=== PATIENT | female | born 1960 | race Caucasian/White ===

== ENCOUNTER → 2019-03-30 | Outpatient (CLI) | payer MEDICAID, SELFPAY ==
[2019-03-30 10:07] VITALS: BMI 30.2
[2019-03-30 12:19] LABS: BNP,B-Type NATRIURETIC PEPTIDE 8.9 pg/mL (0-100)
== END | disposition home or self-care (01) ==
LOC: LAB 11:19
PROVIDERS: Family Provider Student in an Organized Health Care Education/Training Program; PCP Student in an Organized Health Care Education/Training Program; Referring Provider Internal Medicine Critical Care Medicine; Visit Provider Internal Medicine Critical Care Medicine
DX: R93.89 Abnormal findings on diagnostic imaging of other specified body structures (principal)
CPT/HCPCS: 36415; 83880

== ENCOUNTER → 2019-05-03 | Outpatient (CLI) | payer MEDICAID, SELFPAY ==
[2019-03-30 10:07] VITALS: BMI 30.2
--- NOTE | 2019-05-03 16:00 | PFTCOMP ---
COMPLETE PULMONARY FUNCTION TEST INTERPRETATION Brief HPI: Patient is a 58 year old female, currently under the care of myself, who presents to [facility] for complete pulmonary function tests secondary to diagnosis of COPD. Respiratory therapist reports good effort and reproducible results. Interpretation: Forced expiration spirometry shows no large airways obstructive ventilatory defect with an FEV1 of 82% predicted. There is no significant bronchodilator response by strict ATS criteria. Spirograms are of good quality and plateau normally. The respiratory flow volume loop shows a normal pattern. Lung volumes by body plethysmography show a slightly decreased total lung capacity at 4.33 L, 82% predicted. All other lung volumes are reduced symmetrically. Diffusion capacity by carbon monoxide is at the lower limit of normal at 71% predicted. The airway resistance is normal. No previous pulmonary function tests were available for review. Impression: Mild restrictive ventilatory defect with a symmetric reduction in diffusing capacity.
== END | disposition home or self-care (01) ==
LOC: PSN 10:55
PROVIDERS: Family Provider Student in an Organized Health Care Education/Training Program; PCP Student in an Organized Health Care Education/Training Program; Referring Provider Internal Medicine Critical Care Medicine; Visit Provider Internal Medicine Critical Care Medicine
DX: R93.89 Abnormal findings on diagnostic imaging of other specified body structures (principal)
CPT/HCPCS: 94060; 94726; 94729

== ENCOUNTER → 2019-05-07 | Outpatient (CLI) | payer MEDICAID, SELFPAY ==
[2019-03-30 10:07] VITALS: BMI 30.2
[2019-05-07 11:19] VITALS: PULSE 107; PULSE 108; PULSE 110; PULSE 112; PULSE 114; PULSE 94; PULSE 98; O2SAT 92; O2SAT 93; O2SAT 95; O2SAT 96; O2SAT 98
--- NOTE | 2019-05-07 13:38 | PCM.PSN.6M ---
PSN 6 Minute Walk Test - 6 Minute Walk Test 6 Minute Walk Test: 6 Minute Walk Test PSN:6-Minute Walk Test Start: 05/07/19 11:18 Freq: Status: Active Protocol: RESP.6MINW Document 05/07/19 11:19 HG (Rec: 05/07/19 11:20 HG [id number]) 6 Minute Walk Test Date Performed 05/07/19 Time Performed 11:00 Height 5 ft 6 in Weight: 182 lb Weight in Pounds 182.[address]: Nish Aquino Assistive device used: None Pre-test Oxygen Delivery Method Room Air Pulse Ox (%) 96 Pulse Rate (60-100 beats/min) 94 Dyspnea Zee Scale (0-10) 2 Exertion Zee Scale (6-20) 11 1st minute Oxygen Delivery Method Room Air Pulse Ox (%) 92 Pulse Rate (60-100 beats/min) 107 H 2nd minute Oxygen Delivery Method Room Air Pulse Ox (%) 92 Pulse Rate (60-100 beats/min) 107 H 3rd minute Oxygen Delivery Method Room Air Pulse Ox (%) 93 Pulse Rate (60-100 beats/min) 110 H 4th minute Oxygen Delivery Method Room Air Pulse Ox (%) 92 Pulse Rate (60-100 beats/min) 108 H 5th minute Oxygen Delivery Method Room Air Pulse Ox (%) 95 Pulse Rate (60-100 beats/min) 114 H 6th minute Oxygen Delivery Method Room Air Pulse Ox (%) 93 Pulse Rate (60-100 beats/min) 112 H Post-test Oxygen Delivery Method Room Air Pulse Ox (%) 98 Pulse Rate (60-100 beats/min) 98 Dyspnea Zee Scale (0-10) 3 Exertion Zee Scale (6-20) 11 Full Laps Walked 17 Partial Lap, Number of Tiles Walked 0 Total Distance Walked (ft) 1003 - Interpretation Interpretation: The patient ambulated 1003 feet over the course of 6 minutes beginning on room air without assistive devices or breaks. Pretesting oxygen saturation was noted to be 96% on room air. With ambulation, the mane oxygen saturation was 92%. This represents a significant exertional oxygen desaturation. - Recommendations Recommendations: There is no indication for the use of supplemental oxygen at this time. However, close interval follow-up is recommended, given the degree of oxygen desaturation noted during this study.
== END | disposition home or self-care (01) ==
LOC: PSN 10:55
PROVIDERS: Family Provider Student in an Organized Health Care Education/Training Program; PCP Student in an Organized Health Care Education/Training Program; Referring Provider Internal Medicine Critical Care Medicine; Visit Provider Internal Medicine Critical Care Medicine
DX: R93.89 Abnormal findings on diagnostic imaging of other specified body structures (principal)
CPT/HCPCS: 94618

== ENCOUNTER → 2020-01-21 | Outpatient (CLI) | payer MEDICAID, SELFPAY ==
[2019-07-05 06:06] VITALS: BMI 29.7
--- NOTE | 2020-01-21 14:48 | ECHOD_ITS ---
Reason For Study: PHTN Procedure This was a 2D Doppler, Color Flow transthoracic echocardiogram. Exam performed in department. Left Ventricle Normal LV size. Left ventricular systolic function is normal. The estimated ejection fraction is 60 %. Stage 1 diastolic dysfunction. No regional wall motion abnormalities noted. Right Ventricle Normal RV size. Normal systolic function. Atria Normal left atrium. Normal right atrium. Mitral Valve Normal mitral valve. Tricuspid Valve Normal tricuspid valve. Unable to estimate RV systolic pressure due to inadequate jet, pulmonary artery pressure probably normal. Aortic Valve Trisinus/trileaflet aortic valve. Pulmonic Valve The pulmonic valve is not well visualized. Great Vessels Normal aortic root. The pulmonary artery is normal size. Normal inferior vena cava. Pericardium/Pleural No pericardial effusion. MMode/2D Measurements & Calculations LVIDd: 4.7 cm IVSd: 1.0 cm Ao root diam: 3.3 cm LVIDs: 3.4 cm LVPWd: 1.0 cm RVDd: 3.0 cm FS: 28.5 % LAV(MOD-bp): 58.9 ml LA A4 area: 18.0 cm2 LA dimension(2D): 3.5 cm LAV(MOD-bp) Indexed: 30.5 ml/m2 LAV(MOD-sp2): 52.5 ml LAV(MOD-sp4): 57.8 ml RA A4 area: 13.0 cm2 Time Measurements MV dec time: 0.17 sec Doppler Measurements & Calculations MV E max gerard: 83.1 cm/sec Lat Peak E' Gerard: 9.2 cm/sec Med Peak E' Gerard: 7.6 cm/sec MV A max gerard: 97.8 cm/sec E/E' lat: 9.1 E/E' med: 10.9 MV E/A: 0.85 Ao V2 max: 144.2 cm/sec LV V1 max: 111.5 cm/sec PA V2 max: 93.6 cm/sec Ao max P.3 mmHg LV V1 max P.0 mmHg Interpretation Summary Normal LV size. Left ventricular systolic function is normal. The estimated ejection fraction is 60 %. Stage 1 diastolic dysfunction. Unable to estimate RV systolic pressure due to inadequate jet, pulmonary artery pressure probably normal. Ordering Physician: Zulema Barbour Referring Physician: OTD Performed By: Daisy Russ, MATTIE, RVT
== END | disposition home or self-care (01) ==
LOC: CVS 14:48
PROVIDERS: Referring Provider Internal Medicine Critical Care Medicine; Visit Provider Internal Medicine Critical Care Medicine
DX: I27.20 Pulmonary hypertension, unspecified (principal); R93.89 Abnormal findings on diagnostic imaging of other specified body structures
CPT/HCPCS: 93306

== ENCOUNTER → 2020-05-12 | Outpatient (CLI) | payer MEDICAID, SELFPAY ==
[2020-01-28 07:54] VITALS: BMI 29.0
--- NOTE | 2020-05-12 15:36 | PFTCOMP_ITS ---
COMPLETE PULMONARY FUNCTION TEST INTERPRETATION Brief HPI: Patient is a 59 year old female, currently under the care of myself, who presents to [facility] for complete pulmonary function tests secondary to diagnosis of dyspnea. Respiratory therapist reports good effort and reproducible results. Interpretation: Forced expiration spirometry shows no large airways obstructive ventilatory defect with an FEV1 of 81% predicted. There is no significant bronchodilator response by strict ATS criteria. Spirograms are of good quality and plateau normally. The respiratory flow volume loop shows a normal pattern. Lung volumes by body plethysmography show a decreased total lung capacity at 4.09 L, 77% predicted. All other lung volumes are reduced symmetrically. Diffusion capacity by carbon monoxide is decreased at 63% predicted. The airway resistance is normal. No previous pulmonary function tests were available for review. Impression: Mild restrictive ventilatory defect with a symmetric reduction in diffusion capacity.
== END | disposition home or self-care (01) ==
LOC: PSN 10:36
PROVIDERS: PCP Student in an Organized Health Care Education/Training Program; Referring Provider Nurse Practitioner Acute Care; Visit Provider Nurse Practitioner Acute Care
DX: R06.02 Shortness of breath (principal)
CPT/HCPCS: 94060; 94726; 94729

== ENCOUNTER → 2020-05-13 | Outpatient (CLI) | payer MEDICAID, SELFPAY ==
[2020-01-28 07:54] VITALS: BMI 29.0
[2020-05-13 12:50] VITALS: PULSE 100; PULSE 101; PULSE 114; PULSE 115; PULSE 116; PULSE 117; O2SAT 90; O2SAT 91; O2SAT 92; O2SAT 93; O2SAT 94; O2SAT 96
--- NOTE | 2020-05-13 15:11 | PCM.PSN.6M ---
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 Assistive device used: None Pre-test Oxygen Delivery Method Room Air Pulse Ox (%) 92 Pulse Rate (60-100 beats/min) 100 Dyspnea Zee Scale (0-10) 0 Exertion Zee Scale (6-20) 6 1st minute Oxygen Delivery Method Room Air Pulse Ox (%) 96 Pulse Rate (60-100 beats/min) 114 H 2nd minute Oxygen Delivery Method Room Air Pulse Ox (%) 92 Pulse Rate (60-100 beats/min) 116 H 3rd minute Oxygen Delivery Method Room Air Pulse Ox (%) 91 Pulse Rate (60-100 beats/min) 117 H 4th minute Oxygen Delivery Method Room Air Pulse Ox (%) 93 Pulse Rate (60-100 beats/min) 117 H 5th minute Oxygen Delivery Method Room Air Pulse Ox (%) 90 Pulse Rate (60-100 beats/min) 115 H 6th minute Oxygen Delivery Method Room Air Pulse Ox (%) 91 Pulse Rate (60-100 beats/min) 115 H Dyspnea Zee Scale (0-10) 3 Exertion Zee Scale (6-20) 11 Post-test Oxygen Delivery Method Room Air Pulse Ox (%) 94 Pulse Rate (60-100 beats/min) 101 H Full Laps Walked 18 Partial Lap, Number of Tiles Walked 55 Total Distance Walked (ft) 1117 - Interpretation Interpretation: The patient was able to ambulate 1117 feet over the course of 6 minutes on room air with no assistive devices or breaks. The patient had a low baseline saturation of 92%, but did not have any significant desaturation during testing. The patient did have significant tachycardia as high as 117 bpm. These findings are consistent with a cardiovascular limitation exercise tolerance. - Recommendations Recommendations: The patient requires no supplemental oxygen at rest, but will need to be watched closely given level of baseline desaturation.
== END | disposition home or self-care (01) ==
LOC: PSN 12:31
PROVIDERS: PCP Student in an Organized Health Care Education/Training Program; Referring Provider Nurse Practitioner Acute Care; Visit Provider Nurse Practitioner Acute Care
DX: R06.02 Shortness of breath (principal)
CPT/HCPCS: 94618

== ENCOUNTER → 2020-09-26 12:59 | Outpatient (CLI) | payer MEDICAID, SELFPAY ==
[2020-09-12 09:53] VITALS: BMI 29.3
--- NOTE | 2020-09-26 13:02 | RAD_ITS ---
INDICATION: Concern for ILD EXAMINATION/TECHNIQUE: X-RAY - XR Chest 2 Views COMPARISON: None. FINDINGS: Chronic lung changes. Tortuous and calcified thoracic aorta. The heart is not enlarged. No pleural effusion or pneumothorax. Degenerative changes of thoracic spine. RAD/Chest PA and Lateral IMPRESSION: No acute radiographic abnormalities. Chronic lung changes. Electronically Signed: Jermain Jauregui MD at 21:39 EST Tel , Service support ,
== END ==
PROVIDERS: PCP Student in an Organized Health Care Education/Training Program; Referring Provider Internal Medicine Critical Care Medicine; Visit Provider Internal Medicine Critical Care Medicine
DX: R06.02 Shortness of breath (principal)
CPT/HCPCS: 71046

== ENCOUNTER → 2020-10-07 14:52 | Outpatient (CLI) | payer MEDICAID, SELFPAY ==
[2020-09-12 09:53] VITALS: BMI 29.3
--- NOTE | 2020-10-07 14:53 | CT_ITS ---
STUDY: CT CHEST WITHOUT CONTRAST REASON FOR EXAM: Female, 60 years old. Concern for ILD RADIATION DOSAGE (If Supplied By Facility): CTDIvol = ( 14.74 ) mGy, DLP = ( 482.51 ) mGycm TECHNIQUE: Transaxial imaging was performed without the administration of intravenous contrast material. Individualized dose optimization techniques were used for this CT. COMPARISON: Chest x-ray 09/26/2020 FINDINGS: The lungs are normal. There is no demonstrated pleural abnormality. Normal heart and pericardium. There are calcifications of the coronary arteries. Normal mediastinum. Normal hilar regions. Normal unenhanced pulmonary arteries. There is atherosclerotic calcification of the aortic arch with tortuosity and elongation of the aortic arch and descending thoracic aorta. Normal osseous structures. There is no demonstrated abnormality of the visualized upper abdomen. CT/Chest without Contrast IMPRESSION: Normal unenhanced CT Chest examination. Electronically Signed: King Hagan MD at 7:56 EDT Tel , Service support ,
== END ==
PROVIDERS: PCP Student in an Organized Health Care Education/Training Program; Referring Provider Internal Medicine Critical Care Medicine; Visit Provider Internal Medicine Critical Care Medicine
DX: R06.02 Shortness of breath (principal)
CPT/HCPCS: 71250

== ENCOUNTER → 2021-04-14 11:18 | Outpatient (CLI) | payer MEDICAID, SELFPAY | PROVIDERS: PCP Student in an Organized Health Care Education/Training Program; Visit Provider Internal Medicine Critical Care Medicine | DX: R06.02 Shortness of breath (principal) | CPT/HCPCS: 94762 ==

== ENCOUNTER 2021-08-26 12:54 | Outpatient (CLI) | payer MEDICAID, SELFPAY ==
--- NOTE | 2021-08-27 10:51 | PFT ---
INTRODUCTION: The patient is a 61-year-old female that presents for pulmonary function studies secondary to a diagnosis of shortness of breath. Respiratory therapy reported good patient effort. Bronchodilators were used during testing. INTERPRETATION: Forced expiration spirometry demonstrates no evidence of a large airways obstructive ventilatory defect. There was no significant response to aerosolized bronchodilators. Spirograms are of good quality and plateau normally. Body plethysmography was performed and revealed a decreased TLC to 3.85 L, 73% of predicted, indicative of a mild restrictive ventilatory impairment. The remainder of the lung volumes are symmetrically reduced. Diffusing capacity by single breath CO is reduced to 60% of predicted. IMPRESSION: Mild restrictive ventilatory impairment with symmetric reduction in diffusing capacity.
== END 2021-08-26 23:59 | disposition home or self-care (01) ==
LOC: PSN 12:56
PROVIDERS: PCP Student in an Organized Health Care Education/Training Program; Referring Provider Internal Medicine Critical Care Medicine; Visit Provider Internal Medicine Critical Care Medicine
DX: R06.02 Shortness of breath (principal); Z72.0 Tobacco use
CPT/HCPCS: 94060; 94726; 94729

== ENCOUNTER 2021-09-28 14:56 | Outpatient (CLI) | payer MEDICAID, SELFPAY ==
--- NOTE | 2021-09-28 15:02 | CT_ITS ---
STUDY: LOW DOSE CT LUNG CANCER SCREENING REASON FOR EXAM: Female, 61 years old. 1 pack per day smoker x45 years RADIATION DOSAGE (If Supplied By Facility): CTDIvol = ( 3.02 ) mGy, DLP = ( 92.52 ) mGycm TECHNIQUE: No contrast was administered. Low dose technique was utilized (average mAS-38 and kVp 120). 1.25 mm axial source images with a slice interval of 1.25-mm were reconstructed in lung windows. 2.5 mm axial source images with a slice interval of 2.5-mm were reconstructed in lung windows. 5.0 mm axial source images with a slice interval of 5.0-mm were reconstructed in soft tissue windows. Nodule measured using lung windows on PACS and/or independent workstation with automated measurement of minimum and maximum diameter. Nodule measurement reported as average diameter rounded to the nearest whole number. Growth is defined as an increase ins size of greater than 1.5 mm. COMPARISON: 10/07/2020 FINDINGS: Lung windows show the lungs to be normally expanded. Stable fibrotic scar in the right upper lobe on axial image 30., There is a subtle 2.5 mm noncalcified nodule in the lateral left lower lobe on axial image 144. No new suspicious noncalcified mass or nodule. No organized infiltrate. Soft tissue windows show a normal-appearing thyroid gland. No suspicious adenopathy. There are calcified coronary vessels. No pleural or pericardial effusions. Limited cuts through the upper abdomen show a small retrocardiac hiatal hernia. Bony structures show degenerative change CT/Low Dose CT Lung Screening IMPRESSION: Lung-RADS category 2 - Continue annual screening with LDCT in 12 months. IMPORTANT NOTES FOR USE: ACR Lung-RADS Version 1.1 Assessment Categories Release Date: 2018 Category: Coded 0-4 bases on nodule(s) with highest degree of suspicion. Negative screen is defined as categories 1 and 2; a positive screen is defined as categories 3 and 4. Category 3 and 4A nodules that are unchanged on interval CT should be coded as category 2, and individuals returned to screening in 12 months. Category 4X: Category 3 or 4 nodules with additional imaging findings that increase the suspicion of lung cancer, such as spiculation, GGN that doubles in size in 1 year, enlarged lymph notes, etc. Category Modifiers: S (significant finding unrelated to lung cancer) Electronically Signed: Vinh Gonzalez MD at 16:31 EDT ,
== END 2021-09-28 23:59 | disposition home or self-care (01) ==
LOC: CT 14:57
PROVIDERS: PCP Student in an Organized Health Care Education/Training Program; Referring Provider Nurse Practitioner Acute Care; Visit Provider Nurse Practitioner Acute Care
DX: F17.210 Nicotine dependence, cigarettes, uncomplicated (principal)
CPT/HCPCS: 71271

== ENCOUNTER 2021-10-06 20:03 | Outpatient (CLI) | payer MEDICAID, SELFPAY | END 2021-10-06 23:59 | disposition home or self-care (01) | PROVIDERS: PCP Student in an Organized Health Care Education/Training Program; Visit Provider Nurse Practitioner Acute Care | DX: G47.10 Hypersomnia, unspecified (principal) | CPT/HCPCS: 95810 ==

== ENCOUNTER → 2022-09-29 | Outpatient (CLI) | payer MEDICAID, SELFPAY ==
--- NOTE | 2022-09-29 14:54 | CT_ITS ---
STUDY: LOW DOSE CT LUNG CANCER SCREENING REASON FOR EXAM: Female, 62 years old. One pack per day smoker more than 30 years RADIATION DOSAGE (If Supplied By Facility): CTDIvol = ( 2.39 ) mGy, DLP = ( 70.57 ) mGycm TECHNIQUE: No contrast was administered. Low dose technique was utilized (average mAS-38 and kVp 120). 1.25 mm axial source images with a slice interval of 1.25-mm were reconstructed in lung windows. 2.5 mm axial source images with a slice interval of 2.5-mm were reconstructed in lung windows. 5.0 mm axial source images with a slice interval of 5.0-mm were reconstructed in soft tissue windows. COMPARISON: 09/28/2021 NODULES: Lung windows show the lungs to be normally expanded. Development of diffuse groundglass opacification throughout both lung barrios since the previous study suggesting active alveolitis or small airways inflammation. There is no organized infiltrate or effusion, no suspicious noncalcified mass or nodule. Limited soft tissue windows show normal-appearing thyroid gland. No suspicious axillary, mediastinal, or perihilar adenopathy. There are calcified coronary vessels. No pleural or pericardial effusions. Bony structures show degenerative change. Limited cuts through the upper abdomen do not show a suspicious solid organ abnormality CT/Low Dose CT Lung Screening IMPRESSION: Lung-RADS category 2 - Continue annual screening with LDCT in 12 months. IMPORTANT NOTES FOR USE: ACR Lung-RADS Version 1.1 Assessment Categories Release Date: 2018 Category: Coded 0-4 bases on nodule(s) with highest degree of suspicion. Negative screen is defined as categories 1 and 2; a positive screen is defined as categories 3 and 4. Category 3 and 4A nodules that are unchanged on interval CT should be coded as category 2, and individuals returned to screening in 12 months. Category 4X: Category 3 or 4 nodules with additional imaging findings that increase the suspicion of lung cancer, such as spiculation, GGN that doubles in size in 1 year, enlarged lymph notes, etc. Category Modifiers: S (significant finding unrelated to lung cancer) Electronically Signed: Vinh Gonzalez MD at 8:00 EDT ,
== END | disposition home or self-care (01) ==
PROVIDERS: PCP Student in an Organized Health Care Education/Training Program; Referring Provider Nurse Practitioner Acute Care; Visit Provider Nurse Practitioner Acute Care
DX: F17.210 Nicotine dependence, cigarettes, uncomplicated (principal)
CPT/HCPCS: 71271

== ENCOUNTER → 2023-07-21 | Outpatient (CLI) | payer MEDICAID, SELFPAY ==
--- NOTE | 2023-07-25 11:01 | PFT ---
INTRODUCTION: The patient is a 63-year-old female who presents for pulmonary function studies secondary to a diagnosis of hypoventilation. Respiratory therapy reported good patient effort. Bronchodilators were used during testing. INTERPRETATION: Forced expiration spirometry demonstrated no evidence of a large airways obstructive ventilatory defect. There was no significant response to aerosolized bronchodilators. Spirograms are of good quality and plateau normally. Body plethysmography was performed and revealed lung volumes to be within normal limits. Diffusing capacity by single breath CO was mildly decreased at 70% of predicted. IMPRESSION: Isolated mild reduction in diffusing capacity.
== END | disposition home or self-care (01) ==
LOC: PSN 10:29
PROVIDERS: PCP Student in an Organized Health Care Education/Training Program; Referring Provider Internal Medicine Critical Care Medicine; Visit Provider Internal Medicine Critical Care Medicine
DX: G47.34 Idiopathic sleep related nonobstructive alveolar hypoventilation (principal)
CPT/HCPCS: 94060; 94726; 94729

== ENCOUNTER → 2023-08-10 | Outpatient (CLI) | payer MEDICAID, SELFPAY ==
--- NOTE | 2023-08-10 12:48 | ECHOCS_ITS ---
Reason For Study: SOB, PHTN Procedure This was a 2D Doppler, Color Flow transthoracic echocardiogram. Exam performed in department. Left Ventricle Normal LV size. Left ventricular systolic function is normal. The estimated ejection fraction is 60 %. No regional wall motion abnormalities noted. Right Ventricle Normal RV size. Normal systolic function. Atria Normal left atrium. Normal right atrium. Mitral Valve Normal mitral valve. Tricuspid Valve Normal tricuspid valve. Mild (1+) tricuspid valve insufficiency. Pulmonary artery systolic pressure is 34 mmHg. Aortic Valve Trisinus/trileaflet aortic valve. Mild focal aortic valve thickening. Noncoronary cusp valve thickening. Pulmonic Valve Normal pulmonic valve. Great Vessels Normal aortic root. The pulmonary artery is normal size. Normal inferior vena cava. Pericardium/Pleural No pericardial effusion. MMode/2D Measurements & Calculations LVIDd: 4.4 cm IVSd: 0.94 cm Ao root diam: 2.8 cm LVIDs: 2.9 cm LVPWd: 0.92 cm RVDd: 3.4 cm FS: 35.3 % LAV(MOD-bp): 35.7 ml LVAd ap4: 23.7 cm2 LVAd ap2: 20.0 cm2 LAV(MOD-bp) Indexed: 20.3 ml/m2 LVLd ap4: 7.2 cm LVLd ap2: 7.0 cm LAV(MOD-sp2): 35.5 ml EDV(MOD-sp4): 63.7 ml EDV(MOD-sp2): 50.6 ml LAV(MOD-sp4): 32.5 ml EDV(sp4-el): 66.4 ml EDV(sp2-el): 48.6 ml LVAs ap4: 12.6 cm2 LVAs ap2: 12.3 cm2 LVLs ap4: 5.8 cm LVLs ap2: 5.8 cm ESV(MOD-sp4): 24.0 ml ESV(MOD-sp2): 22.1 ml ESV(sp4-el): 23.2 ml ESV(sp2-el): 22.1 ml EF(MOD-sp4): 62.3 % EF(MOD-sp2): 56.4 % EF(sp4-el): 65.1 % SV(MOD-sp4): 39.7 ml SV(MOD-sp2): 28.5 ml SV(sp4-el): 43.2 ml LA dimension(2D): 4.1 cm LA A4 area: 13.7 cm2 RA A4 area: 11.0 cm2 TAPSE: 2.7 cm Doppler Measurements & Calculations Lat Peak E' Gerard: 9.1 cm/sec Med Peak E' Gerard: 8.9 cm/sec MV V2 max: 89.7 cm/sec MV max P.2 mmHg MV V2 mean: 54.2 cm/sec MV mean P.3 mmHg MV V2 VTI: 26.5 cm MV P1/2t max gerard: 75.9 cm/sec Ao V2 max: 109.3 cm/sec LV V1 max: 88.1 cm/sec MV P1/2t: 88.5 msec Ao max P.8 mmHg LV V1 max P.1 mmHg MV dec slope: 251.1 cm/sec2 Ao V2 mean: 74.5 cm/sec LV V1 mean P.8 mmHg Ao mean P.5 mmHg LV V1 mean: 64.2 cm/sec MVA(P1/2t): 2.5 cm2 Ao V2 VTI: 28.1 cm LV V1 VTI: 20.9 cm AV (velocity ratio): 0.74 PA V2 max: 76.2 cm/sec TR max gerard: 273.9 cm/sec PA V2 mean: 50.4 cm/sec TR max P.0 mmHg ECHO/Echo Complete W/ Contrast Interpretation Summary Normal LV size. Left ventricular systolic function is normal. The estimated ejection fraction is 60 %. Mild focal aortic valve thickening. Pulmonary artery systolic pressure is 34 mmHg. Ordering Physician: Zulema Barbour Referring Physician: Eric Leahy Performed By: Daisy Russ RDCS, RVT
--- OUTSIDE RECORDS SUMMARY | 2023-08-10 13:08 | XMS RPT_ITS | CCD ---
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 Name Role Phone Leahy, Janes Primary Care Provider [phone] Azeb Zamudio Attending Unavailable Leahy, Janes Primary Care Unavailable Leahy, Janes Referring Unavailable Ogorzolka, Azeb Attending Unavailable Leahy, Janes Primary Care Unavailable Leahy, Janes Referring Unavailable DALLAS DUGGAN Attending Unava ilable LEAHY, JANES R Primary Care Unavailable Janes Leahy MD Primary Care Provider [phone] Janes Leahy MD Primary Care Provider Janes Leahy MD Primary Care Provider RAHEEM GAUTHIER Attending Unavailable RAHEEM GAUTHIER Referring Unavailable RAHEEM GAUTHIER Admitting Unavailable MILES LEGGETT Attending Unavailable OGORZOLKA, AZEB Referring Unavailable OGORZOLKA, AEZB Referring Unavailable LEAHY, JANES Primary Care Unavailable OGORZOLKA, AZEB Referring Unavailable LEAHY, JANES Primary Care Unavailable OGORZOLKA, AZEB Referring Unavailable OGORZOLKA, AZEB Attending Unavailable LEAHY, JANES Primary Care Unavailable OGORZOLKA, AZEB Attending Unavailable OGORZOLKA, AZEB Referring Unavailable LEAHY, JANES Primary Care Unavailable OGORZOLKA, AZEB Referring Unavailable LEAHY, JANES Primary Care Unavailable LESLYE ROY Attending Unavailable LEAHY, JANES Primary Care Unavailable OGORZOEliazarKAAZEB Attending Unavailable LEAHY, JANES Attending Unavailable RAHEEM GAUTHIER Attending Unavailable ASTER GOOD Referring Unavailable LEAHY, JANES Primary Care Unavailable OGORZOLKA, AZEB Referring Unavailable URCHEK, RAHEEM Attending Unavailable LEAHY, JANES Primary Care Unavailable OGORZOLKA, AZEB Attending Unavailable LEAHY, JANES Primary Care Unavailable URRAHEEM HILTON Attending Unavailable OGORZOLKA, AZEB Referring Unavailable LEAHY, JANES Primary Care Unavailable OGORZOLKA, AZEB Referring Unavailable LEAHY, JANES Primary Care Unavailable OGORZOLKA, AZEB Referring Unavailable LEAHY, JANES Primary Care Unavailable LEAHY, JANES Primary Care Unavailable URRAHEEM HILTON Attending Unavailable OGORZOLKA, AZEB Referring Unavailable LEAHY, JANES Primary Care Unavailable OGORZOLKA, AZEB Referring Unavailable LEAHY, JANES Primary Care Unavailable OGORZOLKA, AZEB Referring Unavailable OGORZOLKA, AZEB Attending Unavailable LEAHY, JANES Primary Care Unavailable OGORZOLKA, AZEB Referring Unavailable OGORZOLKA, AZEB Referring Unavailable LEAHY, JANES Primary Care Unavailable OGORZOLKA, AZEB Referring Unavailable OGORZOLKA, AZEB Attending Unavailable LEAHY, JANES Primary Care Unavailable OGORZOLKA, AZEB Referring Unavailable LEAHY, JANES Primary Care Unavailable LEAHY, JANES Primary Care Unavailable OGORZOLKA, AZEB Referring Unavailable OGORZOLKA, AZEB Referring Unavailable OGORZOLKA, AZEB Attending Unavailable LEAHY, JANES Primary Care Unavailable OGORZOLKA, AZEB Referring Unavailable LEAHY, JANES Primary Care Unavailable OGORZOLKA, AZEB Referring Unavailable LEAHY, JANES Primary Care Unavailable OGORZOLKA, AZEB Attending Unavailable LEAHY, JANES Primary Care Unavailable OGORZOLKA, AZEB Referring Unavailable OGORZOLKA, AZEB Referring Unavailable OGORZOLKA, AZEB Attending Unavailable ELAHY, JANES Primary Care Unavailable OGORZOLKA, AZEB Referring Unavailable LEAHY, JANES Primary Care Unavailable OGORZOLKA, AZEB Referring Unavailable LEAHY, JANES Primary Care Unavailable OGORZOLKA, AZEB Referring Unavailable LEAHY, JANES Primary Care Unavailable OGORZOLKA, AZEB Referring Unavailable OGORZOLKA, AZEB Attending Unavailable LEAHY, JANES Primary Care Unavailable OGORZOLKA, AZEB Referring Unavailable LEAHY, JANES Primary Care Unavailable OGORZOLKA, AZEB Referring Unavailable OGORZOLKA, AZEB Attending Unavailable LEAHY, JANES Primary Care Unavailable OGORZOLKA, AZEB Referring Unavailable OGORZOLKA, AZEB Attending Unavailable LEAHY, JANES Primary Care Unavailable OGORZOLKA, AZEB Referring Unavailable OGORZOLKA, AZEB Attending Unavailable OGORZOLKA, AZEB Referring Unavailable LEAHY, JANES Primary Care Unavailable LEAHY, JANES Primary Care Unavailable LEAHY, JANES Attending Unavailable OGORZOLKA, AZEB Referring Unavailable LEAHY, [facility] Primary Care Unavailable RAHEEM GAUTHIER Attending Unavailable LEAHY, [facility] Primary Care Unavailable OGORZOLKA, AZEB Referring Unavailable LEAHY, [facility] Primary Care Unavailable OGORZOLKA, AZEB Referring Unavailable OGORZOLKA, AZEB Attending Unavailable LEAHY, [facility] Primary Care Unavailable RAHEEM GAUTHIER Attending Unavailable LEAHY, [facility] Primary Care Unavailable OGORZOLKA, AZEB Attending Unavailable LEAHY, [facility] Primary Care Unavailable LEAHY, JANES Attending Unavailable OGORZOLKA, AZEB Referring Unavailable LEAHY, JANES Referring Unavailable RAHEEM GAUTHIER Attending Unavailable OGORZOLKA, AZEB Attending Unavailable Medications Current Medications Medication Drug Class(es) Dates Sig (Normalized) Sig (Original) [id number] 200 actuat albuterol 0.09 mg/actuat metered dose inhaler (20 sources) beta2-Adrenergic Agonist Start: 05-22-2022 ProAir HFA 108 (90 Base) MCG/ACT inhaler every 4 hours as needed. 0 05/22/2022 Active Completed/Discontinued Medications Medication Drug Class(es) Dates Sig (Normalized) Sig (Original) naproxen 500 mg oral tablet (5 sources) Nonsteroidal Anti-inflammatory Drug Start: 03-23-2022 End: 05-04-2022 take 1 tablet by mouth twice daily at mealtime naproxen (NAPROSYN) 500 MG tablet Indications: Calcific tendinitis of left shoulder , Adhesive capsulitis of left shoulder Take 1 tablet by mouth 2 times daily (with meals) 60 tablet 1 03/23/2022 05/04/2022 Discontinued (LIST CLEANUP) Problems Active Problems Problem Classification Problem Date Documented Date Episodic/Chronic Anxiety disorders (20 sources) Generalized anxiety disorder; Translations: [Generalized anxiety disorder] Onset: 09-11-2019 09-11-2019 Chronic Asthma (20 sources) Mild intermittent asthma; Translations: [Mild intermittent asthma, uncomplicated] Onset: 08-11-2017 Resolved: 06-11-2020 09-11-2019 Chronic Diabetes mellitus without complication (20 sources) Type 2 diabetes mellitus without complication; Translations: [Type 2 diabetes mellitus without complications] Onset: 09-11-2019 09-11-2019 Chronic Disorders of lipid metabolism (20 sources) Mixed hyperlipidemia; Translations: [Mixed hyperlipidemia] Onset: 08-11-2017 09-11-2019 Chronic Esophageal disorders (20 sources) Gastroesophageal reflux disease without esophagitis; Translations: [Gastro-esophageal reflux disease without esophagitis] Onset: 08-11-2017 09-11-2019 Chronic Essential hypertension (20 sources) Essential hypertension; Translations: [Essential (primary) hypertension] Onset: 08-11-2017 09-11-2019 Chronic Mood disorders (20 sources) Depressive disorder; Translations: [Depression] Onset: 08-11-2017 09-11-2019 Chronic Nutritional deficiencies (20 sources) Vitamin D deficiency; Translations: [Vitamin D deficiency, unspecified] Onset: 09-11-2019 09-11-2019 Chronic Osteoarthritis (20 sources) Osteoarthritis of joint of left shoulder region; Translations: [Primary osteoarthritis, left shoulder] Onset: 07-06-2022 07-06-2022 Chronic Other diseases of kidney and ureters (1 source) Disorder of kidney and ureter, unspecified; Translations: [Mild renal insufficiency] Onset: 07-15-2022 Episodic Other diseases of veins and lymphatics (1 source) Peripheral venous insufficiency; Translations: [Venous (peripheral) insufficiency] Episodic Other nervous system disorders (2 sources) Other chronic pain; Translations: [Other chronic pain] Onset: 03-23-2022 Chronic Other non-traumatic joint disorders (1 source) Chronic pain of left upper limb; Translations: [Pain in left shoulder] Episodic Other non-traumatic joint disorders (3 sources) Shoulder pain; Translations: [Pain in left shoulder] Episodic Other nutritional; endocrine; and metabolic disorders (20 sources) Obese class I; Translations: [Obesity, unspecified] Onset: 02-01-2018 09-11-2019 Chronic Other nutritional; endocrine; and metabolic disorders (1 source) Obese class I; Translations: [Obesity, Class I, BMI 30-34.9] Onset: 02-01-2018 09-11-2019 Other skin disorders (1 source) Localized swelling, mass and lump, right lower limb; Translations: [Localized swelling of right lower leg] Episodic Substance-related disorders (2 sources) Nicotine dependence, cigarettes, uncomplicated; Translations: [Nicotine dependence, cigarettes, uncomplicated] Onset: 09-15-2022 Chronic Past or Other Problems Problem Classification Problem Date Documented Date Episodic/Chronic Acute and unspecified renal failure (2 sources) Acute kidney failure, unspecified; Translations: [Acute kidney failure, unspecified (HCC)] Onset: 07-20-2022 Episodic Complications of surgical procedures or medical care (20 sources) Delayed recovery from general anesthesia; Translations: [Other complications of anesthesia, initial encounter] Onset: 07-15-2022 07-15-2022 Episodic Other connective tissue disease (4 sources) Calcific tendinitis of left shoulder; Translations: [Calcific tendinitis of left shoulder] Onset: 03-23-2022 Episodic Other connective tissue disease (20 sources) Calcific tendinitis of left shoulder; Translations: [Calcific tendinitis of left shoulder] Onset: 06-02-2022 Episodic Other connective tissue disease (20 sources) Adhesive capsulitis of left shoulder; Translations: [Adhesive capsulitis of left shoulder] Onset: 06-02-2022 Episodic Other connective tissue disease (20 sources) Biceps tendinitis; Translations: [Bicipital tendinitis, left shoulder] Onset: 07-06-2022 Episodic Other connective tissue disease (1 source) Adhesive capsulitis of left shoulder; Translations: [Adhesive capsulitis of left shoulder] Onset: 06-02-2022 Episodic Other connective tissue disease (2 sources) Bicipital tendinitis, left shoulder; Translations: [Bicipital tendinitis, left shoulder] Onset: 07-06-2022 Episodic Other connective tissue disease (2 sources) Unspecified rotator cuff tear or rupture of left shoulder, not specified as traumatic; Translations: [Unspecified rotator cuff tear or rupture of left shoulder, not specified as traumatic] Onset: 07-02-2022 Episodic Other female genital disorders (4 sources) Leukoplakia of vulva; Translations: [Circumscribed scleroderma] Onset: 10-12-2022 Episodic Other lower respiratory disease (20 sources) Dyspnea; Translations: [Shortness of breath] Onset: 12-09-2020 12-09-2020 Episodic Other non-traumatic joint disorders (4 sources) Pain in left shoulder; Translations: [Pain in left shoulder] Onset: 03-23-2022 Episodic Other screening for suspected conditions (not mental disorders or infectious disease) (20 sources) Magnetic resonance imaging of thoracic spine abnormal; Translations: [Abnormal findings on diagnostic imaging of other parts of musculoskeletal system] Onset: 09-11-2019 09-11-2019 Episodic Residual codes; unclassified (20 sources) Insomnia; Translations: [Insomnia, unspecified] Onset: 03-15-2020 03-15-2020 Episodic Residual codes; unclassified (20 sources) Tobacco user; Translations: [Tobacco use] Onset: 12-09-2020 12-09-2020 Episodic Residual codes; unclassified (2 sources) Tobacco use; Translations: [Tobacco use] Onset: 09-15-2022 Episodic Results Test Name Value Interpretation Reference Range Facil ity Vital Signs Date Time Vital Sign Value Performing Clinician Faci lit 02-28-2023 14:03-0400 Body height 167.6 cm Janes Leahy MD Work Phone: [facility] [place] 02-28-2023 14:03-0400 Body mass index (BMI) [Ratio] 25.34 kg/m2 Janes Leahy MD Work Phone: [facility] [place] 02-28-2023 14:03-0400 Body weight 71.22 kg Janes Leahy MD Work Phone: [facility] [place] 02-28-2023 14:03-0400 Diastolic blood pressure 79 mm[Hg] Janes Leahy MD Work Phone: [facility] [place] 02-28-2023 14:03-0400 Heart rate 71 /min Janes Leahy MD Work Phone: [facility] [place] 02-28-2023 14:03-0400 SaO2% (BldA) [Mass fraction] 91 % Janes Leahy MD Work Phone: [facility] [place] 02-28-2023 14:03-0400 Systolic blood pressure 134 mm[Hg] Janes Leahy MD Work Phone: [facility] [place] 01-25-2023 12:54-0400 Body height 167.6 cm Raheem Gauthier MD Work Phone: [facility] [place] 01-25-2023 12:54-0400 Body mass index (BMI) [Ratio] 23.4 kg/m2 Raheem Gauthier MD Work Phone: [facility] [place] 01-25-2023 12:54-0400 Body weight 65.77 kg Raheem Gauthier MD Work Phone: [facility] [place] 11-16-2022 10:54-0400 Body height 167.6 cm Raheem Gauthier MD Work Phone: [facility] [place] 11-16-2022 10:54-0400 Body mass index (BMI) [Ratio] 23.4 kg/m2 Raheem Gauthier MD Work Phone: [facility] [place] 11-16-2022 10:54-0400 Body weight 65.77 kg Raheem Gauthier MD Work Phone: [facility] [place] 11-16-2022 10:54-0400 Diastolic blood pressure 68 mm[Hg] Raheem Gauthier MD Work Phone: [facility] [place] 11-16-2022 10:54-0400 Systolic blood pressure 114 mm[Hg] Raheem Gauthier MD Work Phone: [facility] [place] 11-15-2022 14:50-0400 Body height 167.6 cm [facility] 1 [facility] [place] 11-15-2022 14:50-0400 Body mass index (BMI) [Ratio] 23.4 kg/m2 [facility] 1 [facility] [place] 11-15-2022 14:50-0400 Body weight 65.[address] [place] 10-12-2022 11:17-0400 Body mass index (BMI) [Ratio] 26.63 kg/m2 Leslye Roy MD Work Phone: [facility] [place] 10-12-2022 11:17-0400 Body temperature 97.81 [degF] Leslye Roy MD Work Phone: [facility] 10-12-2022 11:17-0400 Body weight 72.58 kg Leslye Roy MD Work Phone: [facility] 10-12-2022 11:17-0400 Diastolic blood pressure 76 mm[Hg] Leslye Roy MD Work Phone: [facility] 10-12-2022 11:17-0400 Systolic blood pressure 130 mm[Hg] Leslye Roy MD Work Phone: [facility] Encounters Encounter Date Encounter Type Care Provider Facility Start: 07-19-2023 Refill Janes Leahy MD Work Phone: [facility] Start: 05-18-2023 Refill Janes Leahy MD Work Phone: [facility] Procedures Date Procedure Procedure Detail Performing Clinician Start: 02-25-2023 Lipid 1996 panel - S herminio or Plasma Janes Leahy MD Work Phone: Start: 11-15-2022 Radex shoulder compl ete minimum 2 views Aster HOSKINSC Work Phone: Start: 11-15-2022 Mammography Beth cottrell P[facility] Work Phone: Start: 10-12-2022 Microscopic observat ion [Identifier] in Cervix by Cyto stain Dameon Rodriguez PT Start: 11-19-2021 Lipid 1996 panel - S herminio or Plasma Fabrice Villareal PT Start: 02-12-2020 Dup-scan xtr veins unilateral/limited study Risa Ottrafiq Work Phone: Plan of Treatment Date Care Activity Detail Author Start: 01-23-2029 DTaP/Tdap/Td vaccine (2 - Td or Tdap) DTaP/Tdap/Td vaccine (2 - Td or Tdap) [facility] Start: 01-23-2029 DTaP/Tdap/Td vaccine (2 - Td) DTaP/Tdap/Td vaccine (2 - Td) [place] Start: 01-23-2029 DTaP/Tdap/Td Vaccines (2 - Td or Tdap) DTaP/Tdap/Td Vaccines (2 - Td or Tdap) [facility] Start: 10-13-2027 Screening for malignant neoplasm of cervix [facility] Start: 10-12-2025 Screening for malignant neoplasm of cervix Pap Smear [facility] Start: 07-15-2025 Glaucoma screening Diabetes: Retinopathy Screening [facility] Start: 10-07-2024 Screening for malignant neoplasm of colon [facility] Start: 10-01-2024 Screening for malignant neoplasm of colon [facility] Start: 02-29-2024 Diabetic foot examination Diabetes: Foot Exam [facility] Start: 02-29-2024 End: 02-29-2024 Patient encounter procedure [facility] Start: 02-26-2024 Lipid panel Lipid Panel [facility] Start: 11-16-2023 Screening for malignant neoplasm of breast Mammogram [facility] Start: 10-25-2023 End: 10-25-2023 Patient encounter procedure [facility] Start: 10-01-2023 Screening for malignant neoplasm of lung Lung Cancer Screening [facility] Start: 09-19-2023 End: 09-19-2023 Patient encounter procedure [facility] Start: 09-16-2023 Hemoglobin A1c measurement Diabetes: Hemoglobin A1C [facility] Start: 09-16-2023 Urine screening for protein Diabetes: Urine Protein Screening [facility] Start: 07-17-2023 Glaucoma screening Diabetes: Retinopathy Screening [facility] Start: 03-18-2023 Depresssion Monitoring Depresssion Monitoring [facility] Start: 03-18-2023 Influenza vaccination [facility] Start: 03-09-2023 Hemoglobin A1c measurement A1C test (Diabetic or Prediabetic) [facility] Start: 02-28-2023 End: 02-28-2023 Patient encounter procedure [facility] Start: 01-25-2023 End: 01-25-2023 Patient encounter procedure [facility] Start: 01-21-2023 End: 01-22-2024 XR Shoulder - left 2 Views XR shoulder 2+ views left Imaging Routine Calcific tendinitis of left shoulder Adhesive capsulitis of left shoulder Expected: 01/21/2023, Expires: 01/22/2024 [facility] Work Phone: Immunizations Immunization Date Immunization Notes Care Provider Min bennett 09-11-2019 pneumococcal conjuga te vaccine, 13 valent Azeb Zamudio PA-C Work Phone: [facility] Work Phone: 01-23-2019 tetanus toxoid, redu jayla diphtheria toxoid, and acellular pertussis vaccine, adsorbed [place], [place] Payers Date Payer Category Payer Unknown [id number] 2022 Medicaid [facility] [facility] MED[facility] OD [id number] 2022-Present [phone] [address] [place] [address] Medicaid HMO [id number] 2022 Medicaid [id number] 2014 Unknown [employer] [facility] MEDICAID [id number] 2014-Present [phone] CLAIMS DEPARTMENT [address] [place] [address] [id number] 2014 Unknown [id number] 1959 Unknown [id number] 1959 Unknown [id number] Unknown Social History Date Type Detail Facility Start: 02-05-2020 End: 09-15-2022 Tobacco smoking status NHIS Current every day smoker [facility] Start: 02-05-2020 End: 09-15-2022 Cigarettes smoked current (pack per day) - Reported [facility] Start: 02-05-2020 End: 09-15-2022 Tobacco use and exposure Never used [facility] [place] ANALI Smyth Start: 02-05-2020 End: 02-28-2023 Alcohol intake [facility] Start: 09-11-2019 End: 10-06-2021 History SDOH Social Connections Phone 4 [facility] Start: 09-11-2019 End: 09-15-2022 History SDOH Social Connections Get Together 1 Charmaine [facility] ANALI SHAW Start: 09-11-2019 End: 09-15-2022 History SDOH Social Connections Membership 2 Charmaine [facility] ANALI SHAW Start: 09-11-2019 End: 09-15-2022 History SDOH Social Connections Living 3 Charmaine [facility] ANALI SHAW Start: 09-11-2019 End: 09-15-2022 History SDOH Physical Activity [place] 0 [place] [facility] ANALI SHAW Start: 09-11-2019 End: 09-15-2022 History SDOH Stress 5 [place] [facility]: 1960 [facility]igned At [facility] Start: 09-18-2022 End: 01-25-2023 Exposure to SARS-CoV-2 (event) Not sure [facility] History of tobacco use Cigarette Smoker S [facility] Work Phone: Start: 10-06-2021 History SDOH Physica l Activity MPS 6 [facility] Work Phone: Start: 07-15-2022 End: 09-15-2022 Social connection and isolation panel [facility] Do you belong to any clubs or organizations such as latter day groups, unions, fraternal or athletic groups, or school groups? No [facility] Are you now , , , , never or living with a partner? [facility] How often to you hav e a drink containing alcohol? Monthly or less [facility] How many standard dr inks containing alcohol do you have on a typical day? Patient does not drink [facility] How often do you hav e 6 or more drinks on 1 occasion? Never [facility] Do you feel stress - tense, restless, nervous, or anxious, or unable to sleep at night because your mind is troubled all the time - these days [OSQ] Not at all [facility] [place] (I/We) worried wheth er (my/our) food would run out before (I/we) got money to buy more. Never true [facility] Medical Equipment Procedure Code Equipment Code Equipment Origin al Text Equipment Identifier Dates Aaliyah Bob 5.5x19.1mm - [id number] Start: 07-22-2022 1 strip by Other route in the morning. [id number] Start: 02-17-2017 Goals Date Patient Goal Desired Activity /State Clinical Notes 07-15-2022 to 05-18-2023 Telephone Encounter - Janes Leahy MD - 05/18/2023 5:34 PM EDTTelephone Encounter - Janes Leahy MD - 05/18/2023 5:34 PM EDTTelephone Encounter - Koki Moralez MA - 03/22/2023 9:05 AM EDT Note Date & Type Note Facility 05-18-2023 Telephone encounter Note Refilled requested medication(s). [facility] 05-18-2023 Miscellaneous Notes Refilled requested medication(s). documented in this encounter [facility] 03-22-2023 Telephone encounter Note Last seen 10/12/22 [facility] 03-22-2023 Miscellaneous Notes Last seen 10/12/22 documented in this encounter [facility] 03-22-2023 Telephone encounter Note Last appointment 02/28/2023 , Next appointment is Visit date 09/19/23 Last filled Omeprazole 11/23/22 1 month 3 refills Metoprolol 11/23/22 90 days 3 refills DD [facility] 03-22-2023 Miscellaneous Notes Last appointment 02/28/2023 , Next appointment is Visit date 09/19/23 Last filled Omeprazole 11/23/22 1 month 3 refills Metoprolol 11/23/22 90 days 3 refills DD documented in this encounter [facility] 02-28-2023 History of Present illness Narrative Images from the original note were not included. [facility] [address] [facility] [id number] Visit Type: Follow Up Appointment PCP: Janes Leahy MD Reason for Visit: Diabetes Assessment and Plan Tesha was seen today for diabetes. Diagnoses and all orders for this visit: Type 2 diabetes mellitus without complication, without long-term current use of insulin ([facility] ([facility]) - Diabetes Foot Exam Essential hypertension Mixed hyperlipidemia Lab Results Component Value Date HGBA1C 5.8 09/15/2022 Her a1c is under great control currently on Janumet. No change to the medication. She is also on atorvastatin for cholesterol and ASCVD risk. She is also on metoprolol tartrate for BP management. The labs done on 02/25/23 were reviewed. Follow up for Next scheduled follow-up. Subjective Diabetes She presents for her follow-up diabetic visit. She has type 2 diabetes mellitus. Her disease course has been stable. There are no hypoglycemic associated symptoms. Pertinent negatives for hypoglycemia include no dizziness. There are no diabetic associated symptoms. Pertinent negatives for diabetes include no chest pain, no fatigue, no polydipsia, no polyphagia and no polyuria. There are no hypoglycemic complications. Symptoms are stable. There are no diabetic complications. Risk factors for coronary artery disease include diabetes mellitus, dyslipidemia, hypertension and tobacco exposure. Current diabetic treatment includes oral agent (dual therapy). She is following a generally healthy diet. There is no change in her home blood glucose trend. Review of Systems Constitutional: Negative for activity change, appetite change and fatigue. Eyes: Negative for visual disturbance. Respiratory: Negative for cough and shortness of breath. Cardiovascular: Negative for chest pain and leg swelling. Gastrointestinal: Negative for abdominal pain, constipation, diarrhea, nausea and vomiting. Endocrine: Negative for polydipsia, polyphagia and polyuria. Genitourinary: Negative for frequency. Skin: Negative for color change and wound. Neurological: Negative for dizziness. All other systems reviewed and are negative. No Known Allergies Outpatient Medications Prior to Visit Medication Sig Dispense Refill aspirin 81 MG EC tablet Take 81 mg by mouth in the morning. atorvastatin (Lipitor) 40 MG tablet Take 1 tablet (40 mg) by mouth in the morning. 90 tablet 3 clobetasol (Temovate) 0.05 % cream Apply topically 1 (one) time per week. 30 g 5 cyanocobalamin (Vitamin B-12) 1000 MCG tablet Take 1 tablet by mouth in the morning. D-5000 125 MCG (5000 UT) tablet TAKE 1 TABLET BY MOUTH DAILY 30 tablet 11 glucose blood (FREESTYLE LITE) test strip 1 strip by Other route in the morning. Janumet XR 50-1000 MG per 24 hr tablet TAKE 2 TABLETS BY MOUTH DAILY 180 tablet 3 metoprolol tartrate (Lopressor) 50 MG tablet Take 1 (ONE) and ONE-HALF OF a TABLET BY MOUTH TWICE DAILY 90 tablet 3 omeprazole (PriLOSEC) [address] capsule TAKE 1 CAPSULE BY MOUTH ONCE DAILY before a meal 30 capsule 3 ProAir HFA 108 (90 Base) MCG/ACT inhaler every 4 hours as needed. No facility-administered medications prior to visit. Past Medical History: Diagnosis Date Controlled type 2 diabetes mellitus without complication, without long-term current use of insulin ([facility]) ([facility]) 09/11/2019 Delayed emergence from general anesthesia Essential hypertension 09/11/2019 KIRSTEN (generalized anxiety disorder) 09/11/2019 Gastroesophageal reflux disease without esophagitis 09/11/2019 Mild intermittent asthma without complication 09/11/2019 Mixed hyperlipidemia 09/11/2019 Vitamin D deficiency 09/11/2019 Social History Socioeconomic History Marital status: Tobacco Use Smoking status: Every Day Packs/day: 1.00 Years: 47.00 Pack years: 47.00 Types: Cigarettes Smokeless tobacco: Never Vaping Use Vaping Use: Never used Substance and Sexual Activity Alcohol use: Not Currently Drug use: Never Sexual activity: Not Currently Social Determinants of Health Financial Resource Strain: Low Risk (09/15/2022) Overall Financial Resource Strain (CARDIA) Difficulty of Paying Living Expenses: Not hard at all Food Insecurity: No Food Insecurity (09/15/2022) Hunger Vital Sign Worried About Running Out of Food in the Last Year: Never true Ran Out of Food in the Last Year: Never true Transportation Needs: No Transportation Needs (07/15/2022) PRAPARE - Transportation Lack of Transportation (Medical): No Lack of Transportation (Non-Medical): No Physical Activity: Inactive (09/15/2022) Exercise Vital Sign Days of Exercise per Week: 0 days Minutes of Exercise per Session: 0 min Stress: No Stress Concern Present (09/15/2022) [employer] [place] [employer] - Occupational Stress Questionnaire Feeling of Stress : Not at all Social Connections: Moderately Isolated (09/15/2022) Social Connection and Isolation Panel [NHANES] Frequency of Communication with Friends and Family: More than three times a week Frequency of Social Gatherings with Friends and Family: Once a week Attends Rastafari Services: Never Active Member of Clubs or Organizations: No Attends Club or Organization Meetings: Never Marital Status: Housing Stability: Unknown (09/15/2022) Housing Stability Vital Sign Unable to Pay for Housing in the Last Year: No Unstable Housing in the Last Year: No Past Surgical History: Procedure Laterality Date SHOULDER SURGERY Left 07/22/2022 TUBAL LIGATION Past Surgical History: Procedure Laterality Date SHOULDER SURGERY Left 07/22/2022 TUBAL LIGATION Family History Problem Relation Name Age of Onset No Known Problems Sister No Known Problems Sister No Known Problems Sister No Known Problems Sister Breast cancer Maternal Grandmother Other ([id number]) Father Acute leukemia Stroke Mother No Known Problems Brother No Known Problems Sister Objective BP 134/79 Pulse 71 Ht 5' 6 (1.676 m) Wt 157 lb (71.2 kg) SpO2 91% BMI 25.34 kg/m Physical Exam Vitals and nursing note reviewed. Constitutional: Appearance: Normal appearance. HENT: Head: Normocephalic and atraumatic. Cardiovascular: Rate and Rhythm: Normal rate and regular rhythm. Pulses: Normal pulses. Heart sounds: Normal heart sounds. No murmur heard. Pulmonary: Effort: Pulmonary effort is normal. Breath sounds: Normal breath sounds. No wheezing or rhonchi. Abdominal: General: Abdomen is flat. Bowel sounds are normal. Palpations: Abdomen is soft. Tenderness: There is no abdominal tenderness. Skin: General: Skin is warm and dry. Neurological: General: No focal deficit present. Mental Status: She is alert. Mental status is at baseline. Diabetic Foot Exam normal DP and PT pulses, no trophic changes or ulcerative lesions, normal sensory exam, and normal monofilament exam Data Reviewed Labs: Recent Results (from the past 168 hour(s)) CBC Collection Time: 02/25/23 9:42 AM Result Value Ref Range White Blood Cell Count 4.6 3.8 - 10.8 Thousand/uL RBC 4.98 3.80 - 5.10 Million/uL HEMOGLOBIN 15.0 11.7 - 15.5 g/dL HEMATOCRIT 44.8 35.0 - 45.0 % MCV 90.0 80.0 - 100.0 fL MCH 30.1 27.0 - 33.0 pg MCHC 33.5 32.0 - 36.0 g/dL RDW 13.7 11.0 - 15.0 % Platelet Count 209 140 - 400 Thousand/uL Mean Platelet Volume (MPV) 10.3 7.5 - 12.5 fL Lipid panel Collection Time: 02/25/23 9:42 AM Result Value Ref Range CHOLESTEROL, TOTAL 147 <200 mg/dL HDL CHOLESTEROL 47 (L) > OR = 50 mg/dL TRIGLYCERIDES 85 <150 mg/dL LDL-CHOLESTEROL 82 mg/dL (calc) CHOL/HDLC RATIO 3.1 <5.0 (calc) NON HDL CHOLESTEROL 100 <130 mg/dL (calc) TSH Collection Time: 02/25/23 9:42 AM Result Value Ref Range TSH 2.46 0.40 - 4.50 mIU/L Vitamin D 25 hydroxy Collection Time: 02/25/23 9:42 AM Result Value Ref Range VITAMIN D,25-OH,TOTAL,IA -QUEST 76 30 - 100 ng/mL Comprehensive Metabolic Panel W/Anion Gap Collection Time: 02/25/23 9:42 AM Result Value Ref Range GLUCOSE 106 (H) 65 - 99 mg/dL Urea Nitrogen (BUN) 11 7 - 25 mg/dL Creatinine 0.75 0.50 - 1.05 mg/dL EGFR 89 > OR = 60 mL/min/1.73m2 SODIUM 141 135 - 146 mmol/L POTASSIUM 4.5 3.5 - 5.3 mmol/L CHLORIDE 107 98 - 110 mmol/L Carbon Dioxide (CO2) 25 20 - 32 mmol/L ELECTROLYTE BALANCE 9 7 - 17 mmol/L (calc) CALCIUM 9.4 8.6 - 10.4 mg/dL PROTEIN, TOTAL - QUEST 6.0 (L) 6.1 - 8.1 g/dL ALBUMIN - QUEST 3.9 3.6 - 5.1 g/dL BILIRUBIN, TOTAL - QUEST 0.6 0.2 - 1.2 mg/dL ALKALINE PHOSPHATASE 41 37 - 153 U/L AST - QUEST 15 10 - 35 U/L ALT - QUEST 11 6 - 29 U/L Imaging/Testing: Chart Clean Up: There are no discontinued medications. Janes Leahy MD 03/02/2023 11:34 PM documented in this encounter [facility] 01-25-2023 History of Present illness Narrative [facility] [address] [facility] [address] Dept: [phone] Dept 01/25/2023 Chief Complaint Patient presents with Follow-up Left Shoulder CHEMA, scope, excision calcific tendonitis, Rotator cuff repair x 1 anchor, SAD on 07/22/22 SUBJECTIVE Tesha is approximately 6 months s/p Left Shoulder CHEMA, scope, excision calcific tendonitis, Rotator cuff repair x 1 anchor, SAD. Pain is minimal. She is taking Aleve as needed for pain relief. She denies drainage from her incision. She denies significant complaints other than the expected amount of pain. The patient denies fevers, chills, or night sweats. Physical therapy was stopped on 12/14/22 due to insurance would not approve anymore. She reports overall she can do much more than before surgery. She reports she has better range of motion and can do all of her work and life related activities. She reports that the bump she was feeling on the outside of the arm seems to have softened up and is now more mobile. She reports her biggest complaint is her arm starts to shake with any sort of light lifting. Sane score: 70 OBJECTIVE Ht 5' 6 (1.676 m) Wt 145 lb (65.8 kg) BMI 23.40 kg/m Ortho Exam Focused Exam of the Left Upper Extremity Skin: appropriately healed incision without evidence of infection Edema: no evidence of edema Palpation: non tender to palpation throughout. Palpable superficial loose body lateral shoulder which is somewhat mobile. Mildly tender. ROM: full functional ROM of the elbow, wrist, and hand ROM: LEFT Forward Elevation AROM 120 PROM 140 External rotation at 0 degrees of Adduction AROM 45 PROM 45 Stability: no evidence of joint instabilities Motor: Intact in the hand - able to fire AIN, PIN, and Ulnar nerves Shoulder Motor: LEFT Supraspinatus Mild weakness Infraspinatus Full strength Subscapularis Full strength Sensation: normal in the median, ulnar, and radial nerve distributions Perfusion: Brisk capillary refill in all 5 digits IMAGING LEFT Shoulder 2V (Grashey and Axillary) taken in the office today and reviewed reveals no acute fracture or dislocation. Joint spaces relatively well-maintained. Less obvious anchors seen at previous site within the greater tuberosity. ASSESSMENT Diagnosis Plan 1. Calcific tendinitis of left shoulder 2. Adhesive capsulitis of left shoulder 3. Biceps tendinitis of left shoulder Calcific tendinitis of left shoulder [M75.32] PLAN Tesha is approximately 6-month status post left shoulder manipulation under anesthesia, calcific tendinitis removal, and rotator cuff repair. She continues to have some limited range of motion and strength but overall reports she is much improved compared to before surgery. We are also monitoring a loose rotator cuff anchor seen on her x-rays. This is somewhat less apparent on exam today and less painful. She reports she can perform all of her ADLs and work-related activities. She can sleep on the shoulder without much issue. Her biggest complaint is some shaking while lifting. I explained she can continue to see improvements that she works with a home exercise program as insurance denied further visits. As she is fairly happy with her progress, we deferred further work-up and surgical treatment at this time. She does understand she should monitor her symptoms given her likely loose anchor and continued stiffness, and if her symptoms become more life altering, I would be happy to see her back to discuss further work-up and treatment. All of her questions were answered otherwise. Immobilization: NO immobilization required at this point - FULL ROM encouraged without restrictions Weight Bearing: Weight Bearing As Tolerated Rehabilitation: NO formal rehabilitation required at this point. Follow-up: Tesha will followup with me on an as needed basis. She knows to call the office with any questions or concerns in the interim. Future Imaging: NONE Raheem Gauthier MD Orthopaedic Sports Medicine [facility] Department of Orthopaedics and Sports Medicine 01/25/2023 at 12:59 PM (Please note that portions of this note may have been completed with a voice recognition program. Efforts were made to edit the dictations but occasionally words are mis-transcribed.) documented in this encounter [facility] 12-14-2022 History of Present illness Narrative Images from the original note were not included. [facility] [address] [facility] [address] Dept: [phone] Dept PHYSICAL THERAPY TREATMENT Patient Name: Tesha Brown : 1960 Date of Service: 12/14/2022 Referring Provider: Azeb Zamudio PA* Diagnosis: Calcific tendinitis of left shoulder Subjective Pt reports no pain today, only soreness at the shoulder. The pt reports she still feels limited with movement at the shoulder but she reports she is working to move it as much as possible now. 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 Compliance with HEP: Yes Objective Objective measurements not taken today. Treatment Therapeutic Exercise Therapeutic Exercise Activity 2: wall slides, 10x 5 ea Activity 2 Comment: lift off Therapeutic Exercise Acitivity 3: shoulder abduction, 2x10 Activity 3 Comment: 2# Therapeutic Exercise Activity 4: shoulder scaption, 2x10 Activity 4 Comment: 1# Therapeutic Exercise Activity 7: shoulder flexion, 2x10 Activity 7 Comment: 2# Therapeutic Exercise Activity 8: side lying ER, 2x10 Activity 8 Comment: 2# Therapeutic Exercise Activity 15: UBE, 3.5'/2', lvl 3 Therapeutic Exercise Activity 18: midrows, 2x10 Activity 18 Comment: red Therapeutic Exercise Activity 19: shoulder extension, 2x10 Activity 19 Comment: red Therapeutic Exercise Activity 20: IR/ER with band, 2x10 Activity 20 Comment: red Assessment Skilled physical therapy interventions utilized to improve patient s impairments and work towards established goals. Patient response to treatment: Pt tolerated treatment well during session. Progressions were added for strengthening to complete with HEP following therapy. Band exercises for shoulder and periscapular strengthening were added to address weakness. The pt was cued during IR/ER to complete slow controlled movement to address weakness at the shoulder. The pt completed horizontal abduction and bilateral ER from supine position to improve ROM. Discussed continuing strengthening on her own over the next 6 weeks before following up with her surgeon. The pt will vary exercise routine as she has several exercises available and will add resistance as tolerated. 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 The rationale for today s treatment was explained to the patient. Verbal cues were provided for correct form with all exercises. Advised patient to continue with Home Exercise Program (HEP). Goals General/Ortho Patient will report decreased pain at the left shoulder to 0/10 with AROM for improved tolerance to movement. (Progressing) Start: 08/31/22 Expected End: 12/24/22 Patient will increase ROMof the left shoulder to range equal to the right for improved overhead motion. (Progressing) Start: 08/31/22 Expected End: 12/24/22 Patient will increase strength at the left UE to 4+/5 grossly for improved ability to complete AROM and light lifting. (Progressing) Start: 08/31/22 Expected End: 12/24/22 Plan Plan for next session: The pt will be placed on hold from therapy at this time as she is out of approved visits for physical therapy. The pt will continue on her own at this time following HEP. If no contact is made, after 30 days the pt will be discharged from therapy. Time Entry Total Treatment Time Start Time: 1151 Stop Time: 1230 Time Calculation (min): 39 min PT Therapeutic Procedures Time Entry Therapeutic Exercise Time Entry: 39 Dameon Rodriguez PT documented in this encounter [facility] 11-23-2022 History of Present illness Narrative Images from the original note were not included. [facility] [address] [facility] [address] Dept: [phone] Dept PHYSICAL THERAPY RE-EVALUATION Patient Name: Tesha Brown : 1960 Date of Service: 11/23/2022 Referring Provider: Azeb Zamudio PA* Diagnosis: Calcific tendinitis of left shoulder Subjective General Comments: Pt reports she is more sore today after doing more this week at work. She reports she has been gradually doing more at work. She reports lifting heavy boxes which did not cause pain initially but she was sore afterward. She reports ROM seems to be getting gradually better. Pain: Current: 3/10 Best: 0/10 Worst: Sharp at times for short duration Objective Edema: minimal swelling now at times but much improved. Palpation: minimal TTP noted at the shoulder area. Shoulder ROM: Date: 08/26/2022 09/22/2022 10/21/2022 11/23/2022 Shoulder ROM Left Left Left Left PROM AROM AROM AROM Shoulder Flexion 140 130 (supine) 110 118 Shoulder Abduction 115 95 (side lying) 102 115 Shoulder ER 45 52 (supine) 36 58 Functional ER (behind head) N/T N/T To back of head (cramping) To T1 Functional IR (behind back) 60 (IR) To beltline To L2 (assisted) To T12 *C/O pain with movement Shoulder Strength: Date: 07/29/2022 08/26/2022 09/23/2022 10/21/2022 11/23/2022 Left Right Left Left Left Left Shoulder Flexion N/T 4+/5 N/T 3-/5 4-/5 4/5 Shoulder Abd N/T 4+/5 N/T 3-/5 4-/5 4/5 Shoulder ER N/T 5/5 N/T 3+/5 4-/5 4/5 Shoulder IR N/T 5/5 N/T 3+/5 4/5 4/5 Elbow Flexion N/T 5/5 N/T 4/5 4+/5 5/5 Elbow Extension N/T 5/5 N/T 4/5 4+/5 5/5 *C/O pain with movement Scapular Strength: Date: 07/29/2022 08/26/2022 09/23/2022 10/21/2022 11/23/2022 Left Right Left Right Left Right Left Right Left Right Rhomboid 4-/5 4-/5 4-/5 4-/5 4-/5 4-/5 4/5 4/5 4+/5 4+/5 *C/O pain with movement Outcome Measure: 07/29/2022: QuickDash: 89% 08/26/2022: QuickDash: 57% 09/23/2022: QuickDash: 45% 10/21/2022: QuickDash: 14% 11/23/2022: QuickDash: 20% Assessment Reassessment of goals and objective measures was completed today after ~4 months of physical therapy intervention following shoulder sx for RTC repair and manipulation. The pt demonstrates good improvement from previous assessment last month noting increase in ROM in all planes of motion. The pt had better shoulder strength compared to previous assessment and resistive testing was completed without pain. The pt can functionally reach behind her head and reach behind the back with minimal assistance. HEP was updated during today's session to include wall slides with lift off to help address end range motion and periscapular strengthening. Added standing shoulder AROM with focus on scapulohumeral rhythm. Discussed with the pt progressively doing more activity at home and work to help build strength without pushing through pain. The pt has one more visit remaining. The pt will work on HEP over the week three weeks and follow up for progressions/assessment at that time. Rehab Potential: Good Goals Active General/Ortho Patient will be independent with HEP. (Completed) Start: 08/31/22 Expected End: 10/24/22 Met: 10/21/22 Patient will report decreased pain at the left shoulder to 0/10 with AROM for improved tolerance to movement. (Progressing) Start: 08/31/22 Expected End: 12/24/22 Goal note from Evaluation 10/21/2022 by Dameon Rodriguez PT 0-4/10 pain range, most of the time the pain is now below 2/10 Patient will increase ROMof the left shoulder to range equal to the right for improved overhead motion. (Progressing) Start: 08/31/22 Expected End: 12/24/22 Goal note from Evaluation 10/21/2022 by Dameon Rodriguez PT AROM was assessed standing today with both flexion and abduction about 90 degrees at this time. Patient will increase strength at the left UE to 4+/5 grossly for improved ability to complete AROM and light lifting. (Progressing) Start: 08/31/22 Expected End: 12/24/22 Goal note from Evaluation 10/21/2022 by Dameon Rodriguez PT 4-/5 overall at the left shoulder. Plan Plan for next session: Reassessment of goals and objective measures at next treatment session. Risks and benefits were discussed with the patient and/or family, and the patient and/or family participated with the plan of care and agrees. Treatment Therapeutic Exercise Therapeutic Exercise Activity 2: wall slides, 10x 5 ea Activity 2 Comment: lift off Therapeutic Exercise Acitivity 3: shoulder abduction, 2x10 Therapeutic Exercise Activity 4: shoulder scaption, 2x10 Therapeutic Exercise Activity 5: shoulder flexion, 2x10 Patient Education: Pt education provided for assessment findings, POC, and prognosis/expectations for therapy. Update/review of HEP. Time Entry Total Treatment Time Start Time: 1227 Stop Time: 1310 Time Calculation (min): 43 min PT Therapeutic Procedures Time Entry Therapeutic Exercise Time Entry: 40 Dameon Rodriguez PT documented in this encounter [facility] 11-16-2022 History of Present illness Narrative [facility] [address] [facility] [address] Dept: [phone] Dept 11/16/2022 Chief Complaint Patient presents with Follow-up Left Shoulder CHEMA, scope, excision calcific tendonitis, Rotator cuff repair x 1 anchor, SAD on 07/22/22 SUBJECTIVE Tesha is approximately 4 months s/p Left Shoulder CHEMA, scope, excision calcific tendonitis, Rotator cuff repair x 1 anchor, SAD. Pain is minimal. She is no longer taking anything for pain. She denies drainage from her incision. She is doing better. The patient denies fevers, chills, or night sweats. Physical therapy is at [facility] once a week. Sane score: 70 OBJECTIVE BP 114/68 Ht 5' 6 (1.676 m) Wt 145 lb (65.8 kg) BMI 23.40 kg/m Ortho Exam Focused Exam of the Left Upper Extremity Skin: appropriately healed incision without evidence of infection Edema: no evidence of edema Palpation: non tender to palpation throughout. Still palpable area of firmness/possible anchor anterolateral but non tenderNegative homans signs bilaterally. ROM: full functional ROM of the elbow, wrist, and hand ROM: LEFT Forward Elevation AROM 100 PROM 120 External rotation at 0 degrees of Adduction AROM 30 PROM 45 Stability: no evidence of joint instabilities Motor: Intact in the hand - able to fire AIN, PIN, and Ulnar nerves Shoulder Motor: LEFT Supraspinatus Mild weakness Infraspinatus Mild weakness Subscapularis Full strength Sensation: normal in the median, ulnar, and radial nerve distributions Perfusion: Brisk capillary refill in all 5 digits IMAGING LEFT Shoulder 2V reveal no acute fracture or dislocation. Stable appearing rotator cuff anchor seen without significant interval difference in pullout. ASSESSMENT Diagnosis Plan 1. Calcific tendinitis of left shoulder 2. Adhesive capsulitis of left shoulder 3. Biceps tendinitis of left shoulder Calcific tendinitis of left shoulder [M75.32] PLAN Tesha is approximately 4 months status post left shoulder manipulation, excision of calcific tendinitis, and rotator cuff repair. Overall she is seeing nice progress. She does have some pullout of her anchor seen on x-rays but this has been relatively stable over the past few visits. I reviewed her x-rays from yesterday which again are stable. She reports overall her pain and motion and strength are improving. She reports that she has noticed much difference of her symptoms from compared to before surgery. She is happy with her progress. I explained we still need to closely monitor this anchor but as it is stable and her symptoms are improving, we can continue to monitor. I would like to see her back in 2 months to check her progress and all of her questions were answered otherwise. Immobilization: NO immobilization required at this point - FULL ROM encouraged without restrictions Weight Bearing: progress per protocol Rehabilitation: continue with therapy as scheduled. Follow-up: Tesha will followup with me in 2 months. She knows to call the office with any questions or concerns in the interim. Future Imaging: LEFT Shoulder 2 v, axillar and grashey Raheem Gauthier MD Orthopaedic Sports Medicine [facility] Department of Orthopaedics and Sports Medicine 11/16/2022 at 11:22 AM (Please note that portions of this note may have been completed with a voice recognition program. Efforts were made to edit the dictations but occasionally words are mis-transcribed.) documented in this encounter [facility] 11-02-2022 History of Present illness Narrative Images from the original note were not included. [facility] AT [facility] [address] [facility] [address] Dept: [phone] Dept PHYSICAL THERAPY TREATMENT Patient Name: Tesha Brown : 1960 Date of Service: 11/02/2022 Referring Provider: Azeb Zamudio PA* Diagnosis: Calcific tendinitis of left shoulder Subjective Pt reports minimal pain today. She reports she has been lifting heavier boxes now at work. She reports she cannot lift above head but she is able to lift at low levels. She reports cramping at times when raising the arm above head. Compliance with HEP: Yes Objective Objective measurements not taken today. Treatment Therapeutic Exercise Therapeutic Exercise Activity 12: Wand flexion, 10x Activity 12 Comment: standing Therapeutic Exercise Activity 15: UBE, 3'/3, lvl 3 Therapeutic Exercise Activity 16: wand flexion, with eccentric lowering without wand, 10x Therapeutic Exercise Activity 18: midrows, 2x10 Activity 18 Comment: red Therapeutic Exercise Activity 19: shoulder extension, 2x10 Activity 19 Comment: red Therapeutic Exercise Activity 20: biceps curl, 2x10 Activity 20 Comment: 4# dumbbell Assessment Skilled physical therapy interventions utilized to improve patient s impairments and work towards established goals. Patient response to treatment: Added standing wand flexion to help address overhead movement. The pt has slightly greater motion on the right compared to the left. Biceps stretch was added in standing position using had rail to help address cramping noted in the proximal biceps muscle. Pt also began biceps curls using 4# dumbbell to address biceps weakness and address muscles spasms noted with overhead movement. HEP was updated with new exercises to continue while traveling on vacation. Patient will benefit from continued physical therapy to Progress shoulder strengthening to improve overhead motion. The rationale for today s treatment was explained to the patient. Verbal cues were provided for correct form with all exercises. Advised patient to continue with Home Exercise Program (HEP). Goals General/Ortho Patient will report decreased pain at the left shoulder to 0/10 with AROM for improved tolerance to movement. (Progressing) Start: 08/31/22 Expected End: 10/24/22 Goal Note 0-4/10 pain range, most of the time the pain is now below 2/10 Patient will increase ROMof the left shoulder to range equal to the right for improved overhead motion. (Progressing) Start: 08/31/22 Expected End: 10/24/22 Goal Note AROM was assessed standing today with both flexion and abduction about 90 degrees at this time. Patient will increase strength at the left UE to 4+/5 grossly for improved ability to complete AROM and light lifting. (Progressing) Start: 08/31/22 Expected End: 10/24/22 Goal Note 4-/5 overall at the left shoulder. Plan Plan for next session: Progress UE strengthening as tolerated to improve movement overhead. Time Entry Total Treatment Time Start Time: 1302 Stop Time: 1333 Time Calculation (min): 31 min PT Therapeutic Procedures Time Entry Therapeutic Exercise Time Entry: 30 Dameon Rodriguez PT documented in this encounter [facility] 10-21-2022 History of Present illness Narrative Images from the original note were not included. [facility] AT [facility] [address] [facility] [address] Dept: [phone] Dept PHYSICAL THERAPY RE-EVALUATION Patient Name: Tesha Brown : 1960 Date of Service: 10/21/2022 Referring Provider: Azeb Zamudio PA* Diagnosis: Calcific tendinitis of left shoulder Subjective General Comments: Pt reports she is doing much better over the past month. She reports pain feels about 98% better. Functionally she is working to use the shoulder more and notices better ROM. Going overhead is still challenging but strength at lower level is tolerable. Pain: Current: 2/10 Best: 0/10 Worst: 4/10 Current Level of Function: Actively using the left shoulder, able to sleep on the left side. Patient s Stated Goal: Pt reported goal is to be able to reach overhead without restrictions. Objective Edema: mild swelling at the bilateral lower extremities and in the left arm, much less than last month. Palpation: TTP at the anterior shoulder region in the subacromial space, area of lump/bump near biceps tendon, and in the biceps muscle belly. Shoulder ROM: Date: 07/29/2022 08/26/2022 09/22/2022 10/21/2022 Shoulder ROM Left Right Left Left Left PROM AROM PROM AROM AROM Shoulder Flexion 105 165 140 130 (supine) 110 Shoulder Abduction 80 160 115 95 (side lying) 102 Shoulder ER 25 75 45 52 (supine) 36 Functional ER (behind head) N/T To C7 N/T N/T To back of head (cramping) Functional IR (behind back) N/T To T10 60 (IR) To beltline To L2 (assisted) *C/O pain with movement Shoulder Strength: Date: 07/29/2022 08/26/2022 09/23/2022 10/21/2022 Left Right Left Left Left Shoulder Flexion N/T 4+/5 N/T 3-/5 4-/5 Shoulder Abd N/T 4+/5 N/T 3-/5 4-/5 Shoulder ER N/T 5/5 N/T 3+/5 4-/5 Shoulder IR N/T 5/5 N/T 3+/5 4/5 Elbow Flexion N/T 5/5 N/T 4/5 4+/5 Elbow Extension N/T 5/5 N/T 4/5 4+/5 *C/O pain with movement Scapular Strength: Date: 07/29/2022 08/26/2022 09/23/2022 10/21/2022 Left Right Left Right Left Right Left Right Rhomboid 4-/5 4-/5 4-/5 4-/5 4-/5 4-/5 4/5 4/5 *C/O pain with movement Outcome Measure: 07/29/2022: QuickDash: 89% 08/26/2022: QuickDash: 57% 09/23/2022: QuickDash: 45% 10/21/2022: QuickDash: 14% Assessment Reassessment of goals and objective measures was completed today. The pt demonstrates good progress with therapy reporting pain is now 98% improved and she is noticing better strengthening functionally at work lifting light items and she was able to reach upward to turn on a light from a pull string. During today's assessment the pt was tested through AROM in standing position. She was able to reach above 90 degrees into flexion and abduction. The pt movement is challenging with shoulder elevation earlier in movement but improvement from previous assessment. Shoulder strength has improved to 4-/5 overall at the left shoulder. Endurance is beginning to improve with less fatigue following repetitions of exercises. The pt would benefit from continuing with physical therapy intervention to continuing improving UE strength to progress AROM through available PROM at the left shoulder following surgery. Rehab Potential: Good Goals Active General/Ortho Patient will be independent with HEP. (Completed) Start: 08/31/22 Expected End: 10/24/22 Met: 10/21/22 Patient will report decreased pain at the left shoulder to 0/10 with AROM for improved tolerance to movement. (Progressing) Start: 08/31/22 Expected End: 10/24/22 Goal Note 0-4/10 pain range, most of the time the pain is now below 2/10 Patient will increase ROMof the left shoulder to range equal to the right for improved overhead motion. (Progressing) Start: 08/31/22 Expected End: 10/24/22 Goal Note AROM was assessed standing today with both flexion and abduction about 90 degrees at this time. Patient will increase strength at the left UE to 4+/5 grossly for improved ability to complete AROM and light lifting. (Progressing) Start: 08/31/22 Expected End: 10/24/22 Goal Note 4-/5 overall at the left shoulder. Plan Frequency and Duration: 1-2/wk for 4 weeks Therapeutic Contents: client education, home exercise program, manual therapy techniques, neuromuscular re-education, therapeutic activities, therapeutic exercise, and modalities as needed Plan for next session: Extend coverage date of physical therapy with insurance. Progress shoulder strengthening to improve overhead motion. Risks and benefits were discussed with the patient and/or family, and the patient and/or family participated with the plan of care and agrees. Treatment Therapeutic Exercise Therapeutic Exercise Activity 5: shoulder abduction, 2x10 Activity 5 Comment: 1# Therapeutic Exercise Activity 7: shoulder flexion, 2x10 Activity 7 Comment: 2# Therapeutic Exercise Activity 8: side lying ER, 2x10 Activity 8 Comment: 2# Therapeutic Exercise Activity 9: wall slides, 10x Activity 9 Comment: standing Therapeutic Exercise Activity 15: UBE, 4'/2, lvl 3 Patient Education: Pt education provided for assessment findings, POC, and prognosis/expectations for therapy. Time Entry Total Treatment Time Start Time: 1400 Stop Time: 1435 Time Calculation (min): 35 min PT Therapeutic Procedures Time Entry Therapeutic Exercise Time Entry: 32 Dameon Rodriguez PT documented in this encounter [facility] 10-19-2022 History of Present illness Narrative Images from the original note were not included. [facility] AT [facility] [address] [facility] [address] Dept: [phone] Dept PHYSICAL THERAPY TREATMENT Patient Name: Tesha Brown : 1960 Date of Service: 10/19/2022 Referring Provider: Azeb Zamudio PA* Diagnosis: Calcific tendinitis of left shoulder Subjective Pt reports no pain at the shoulder today to begin therapy. The pt reports she has been using the shoulder more for work with lifting and moving items of light weight. Compliance with HEP: Yes Objective Objective measurements not taken today. Treatment Therapeutic Exercise Therapeutic Exercise Activity 5: shoulder abduction, 2x10 Activity 5 Comment: 1# Therapeutic Exercise Activity 7: shoulder flexion, 2x10 Activity 7 Comment: 2# Therapeutic Exercise Activity 8: side lying ER, 2x10 Activity 8 Comment: 2# Therapeutic Exercise Activity 9: wall slides, 10x Therapeutic Exercise Activity 15: UBE, 4'/2, lvl 3 Therapeutic Exercise Activity 16: wand flexion, with eccentric lowering without wand, 10x Therapeutic Exercise Activity 17: Standing shoulder flexion, 5x Activity 17 Comment: with scapular retraction Assessment Skilled physical therapy interventions utilized to improve patient s impairments and work towards established goals. Patient response to treatment: Warm up on arm bike was completed with additional resistance to address stiffness and decreased endurance in the shoulder muscles. The pt had better control and ROM into elevation with wand today. She also had the ability to let go of the wand and lower without hesitation. Added shoulder flexion in front of the mirror to work on scapulohumeral rhythm with visual feedback. Patient will benefit from continued physical therapy to address shoulder AROM and strength to improve ability raise arm above shoulder level for ADLs. The rationale for today s treatment was explained to the patient. Verbal cues were provided for correct form with all exercises. Advised patient to continue with Home Exercise Program (HEP). Goals General/Ortho Patient will be independent with HEP. (Progressing) Start: 08/31/22 Expected End: 10/24/22 Patient will report decreased pain at the left shoulder to 0/10 with AROM for improved tolerance to movement. (Progressing) Start: 08/31/22 Expected End: 10/24/22 Patient will increase ROMof the left shoulder to range equal to the right for improved overhead motion. (Progressing) Start: 08/31/22 Expected End: 10/24/22 Goal note from Follow-Up 08/31/2022 by Dameon Rodriguez, PT Began supine active motion. Patient will increase strength at the left UE to 4+/5 grossly for improved ability to complete AROM and light lifting. (Progressing) Start: 08/31/22 Expected End: 10/24/22 Plan Plan for next session: Continue with current plan, progress as tolerated. Time Entry Total Treatment Time Start Time: 1400 Stop Time: 1430 Time Calculation (min): 30 min PT Therapeutic Procedures Time Entry Therapeutic Exercise Time Entry: 30 Dameon Rodriguez PT documented in this encounter [facility] 10-14-2022 History of Present illness Narrative Images from the original note were not included. [facility] AT [facility] [address] [facility] [address] Dept: [phone] Dept PHYSICAL THERAPY TREATMENT Patient Name: Tesha Brown : 1960 Date of Service: 10/14/2022 Referring Provider: Azeb Zamudio PA* Diagnosis: Calcific tendinitis of left shoulder Reason for referral/Mechanism of Injury: left shoulder surgery on 07/22/2022. (week 12) Patient Preferences: Fidelia Precautions/Red Flags: Other Other: Per post-op procotol for small to medium RTC repair, surgery on 07/22/2022, sling for 6 weeks. (12 weeks) Subjective Pt reports shoulder is feeling pretty good today. Pt reports pain is 1/10 today. She reports she has not been able to do the new exercise yet as she was recovering on her day off. Compliance with HEP: Yes Objective Objective measurements not taken today. Treatment Therapeutic Exercise Therapeutic Exercise Activity 5: shoulder abduction, 2x10 Activity 5 Comment: 1# Therapeutic Exercise Activity 7: shoulder flexion, 2x10 Activity 7 Comment: 2# Therapeutic Exercise Activity 8: side lying ER, 2x10 Activity 8 Comment: 2# Therapeutic Exercise Activity 12: Wand flexion, 10x Activity 12 Comment: supine Therapeutic Exercise Activity 15: UBE, 2'/2, lvl 2 Therapeutic Exercise Activity 16: wand flexion, with eccentric lowering without wand, 5x Assessment Skilled physical therapy interventions utilized to improve patient s impairments and work towards established goals. Patient response to treatment: Treatment focus was on shoulder strengthening again today. The pt tolerated exercises with 2# resistance well with good ROM into flexion and ER. Side lying shoulder abduction was still completed with 1# due to limited ROM into abduction. Standing wand flexion with lowering eccentrically without the wand very challenging for the pt with report of cramping in the upper arm which started when putting hair up while getting ready. The pt reports letting go of the wand is easy now than last session. Patient will benefit from continued physical therapy to continue strengthening for improved AROM. The rationale for today s treatment was explained to the patient. Verbal cues were provided for correct form with all exercises. Advised patient to continue with Home Exercise Program (HEP). Goals General/Ortho Patient will be independent with HEP. (Progressing) Start: 08/31/22 Expected End: 10/24/22 Patient will report decreased pain at the left shoulder to 0/10 with AROM for improved tolerance to movement. (Progressing) Start: 08/31/22 Expected End: 10/24/22 Patient will increase ROMof the left shoulder to range equal to the right for improved overhead motion. (Progressing) Start: 08/31/22 Expected End: 10/24/22 Goal note from Follow-Up 08/31/2022 by Dameon Rodriguez, PT Began supine active motion. Patient will increase strength at the left UE to 4+/5 grossly for improved ability to complete AROM and light lifting. (Progressing) Start: 08/31/22 Expected End: 10/24/22 Plan Plan for next session: Continue with current plan. Time Entry Total Treatment Time Start Time: 0200 Stop Time: 231 Time Calculation (min): 32 min PT Therapeutic Procedures Time Entry Therapeutic Exercise Time Entry: 30 Dameon Rodriguez PT documented in this encounter [facility] 10-12-2022 History of Present illness Narrative Images from the original note were not included. [facility] AT [facility] [address] [facility] [address] Dept: [phone] Dept PHYSICAL THERAPY TREATMENT Patient Name: Tesha Brown : 1960 Date of Service: 10/12/2022 Referring Provider: Azeb Zamudio PA* Diagnosis: Calcific tendinitis of left shoulder Reason for referral/Mechanism of Injury: left shoulder surgery on 07/22/2022. (week 11) Patient Preferences: [employer]idelia Precautions/Red Flags: Other Other: Per post-op procotol for small to medium RTC repair, surgery on 07/22/2022, sling for 6 weeks. (11 weeks) Subjective Pt reports that minimal to no pain to start therapy today. She reports some ups and downs since her last appointment but overall she reports she seems to be moving in the right direction. Compliance with HEP: Yes Objective Objective measurements not taken today. Treatment Therapeutic Exercise Therapeutic Exercise Activity 5: shoulder abduction, 2x10 Activity 5 Comment: 1# Therapeutic Exercise Activity 6: PROM x10 minutes Activity 6 Comment: supine Therapeutic Exercise Activity 7: shoulder flexion, 2x10 Activity 7 Comment: 2# Therapeutic Exercise Activity 8: side lying ER, 2x10 Activity 8 Comment: 2# Therapeutic Exercise Activity 9: wall slides, 10x Activity 9 Comment: standing Therapeutic Exercise Activity 14: wand ER, 10x Activity 14 Comment: standing Therapeutic Exercise Activity 15: UBE, 2'/2, lvl 0 Therapeutic Exercise Activity 16: wand flexion, with eccentric lowering without wand, 5x Assessment Skilled physical therapy interventions utilized to improve patient s impairments and work towards established goals. Patient response to treatment: Pt continues to be more challenged by UBE with movement going backwards. Added standing wand flexion with eccentric lowering without wand during session today. The pt fatigues quickly with more difficulty controlling decent. The pt reports minimal pain during the exercise. Progressed supine and side lying exercises to 2# resistance. Pt is more fatigued by abduction than flexion or ER. The pt reports no increase in pain after session. Discussed with the pt adding more resistance during supine/side lying exercises and wand raises with eccentric lowering to HEP. The pt was advised to allow proper recovery time as she may have more muscle soreness with progressions. Patient will benefit from continued physical therapy to further progress shoulder strengthening to utilize full, available range at the left shoulder. The rationale for today s treatment was explained to the patient. Verbal cues were provided for correct form with all exercises. Advised patient to continue with Home Exercise Program (HEP). Goals General/Ortho Patient will be independent with HEP. (Progressing) Start: 08/31/22 Expected End: 10/24/22 Patient will report decreased pain at the left shoulder to 0/10 with AROM for improved tolerance to movement. (Progressing) Start: 08/31/22 Expected End: 10/24/22 Patient will increase ROMof the left shoulder to range equal to the right for improved overhead motion. (Progressing) Start: 08/31/22 Expected End: 10/24/22 Goal note from Follow-Up 08/31/2022 by Dameon Rodriguez, PT Began supine active motion. Patient will increase strength at the left UE to 4+/5 grossly for improved ability to complete AROM and light lifting. (Progressing) Start: 08/31/22 Expected End: 10/24/22 Plan Plan for next session: Check response to new exercises. Continue progression of strengthening for full AROM overhead. Time Entry Total Treatment Time Start Time: 1150 Stop Time: 1220 Time Calculation (min): 30 min PT Therapeutic Procedures Time Entry Therapeutic Exercise Time Entry: 30 Dameon Rodriguez PT documented in this encounter [facility] 10-12-2022 History of Present illness Narrative Tesha Brown 10/12/2022 62 y.o. Primary Care Physician: Janes Leahy MD Chief Complaint Patient presents with Annual Exam [place] 10/06/21 HPI : Tesha Brown is a 62 y.o. female here for annual exam Four great grand children Currently on maintenance twice weekly Clobetasol for biopsy proven lichen sclerosis. __ Gynecologic History: No LMP recorded. Patient is postmenopausal. Vaginal Bleeding in past year: No Sexually Active: No due to decreased libido. 11 years to male partner Aidan. OB History Para Term AB Living 4 4 4 SAB IAB Ectopic Multiple Live Births # Outcome Date GA Lbr Igor/2nd Weight Sex Delivery Anes PTL Lv 4 Term 1990 Vag-Spont 3 Term 1985 Vag-Spont 2 Term 1981 Vag-Spont 1 Term 1977 Vag-Spont Preventative Health Testing: Date of Last Pap Smear: 3 years ago Abnormal Pap Smear History: none Mammogram: has mammogram scheduled Past Medical History: Diagnosis Date Controlled type 2 diabetes mellitus without complication, without long-term current use of insulin ([facility]) ([facility]) 09/11/2019 Delayed emergence from general anesthesia Essential hypertension 09/11/2019 KIRSTEN (generalized anxiety disorder) 09/11/2019 Gastroesophageal reflux disease without esophagitis 09/11/2019 Mild intermittent asthma without complication 09/11/2019 Mixed hyperlipidemia 09/11/2019 Vitamin D deficiency 09/11/2019 Past Surgical History: Procedure Laterality Date SHOULDER SURGERY Left 07/22/2022 TUBAL LIGATION Family History Problem Relation Name Age of Onset No Known Problems Sister No Known Problems Sister No Known Problems Sister No Known Problems Sister Breast cancer Maternal Grandmother Other ([id number]) Father Acute leukemia Stroke Mother No Known Problems Brother No Known Problems Sister Social History Socioeconomic History Marital status: Spouse name: Not on file Number of children: Not on file Years of education: Not on file Highest education level: Not on file Occupational History Not on file Tobacco Use Smoking status: Every Day Packs/day: 1.00 Years: 47.00 Pack years: 47.00 Types: Cigarettes Smokeless tobacco: Never Vaping Use Vaping Use: Never used Substance and Sexual Activity Alcohol use: Not Currently Drug use: Never Sexual activity: Not Currently Other Topics Concern Not on file Social History Narrative Not on file Social Determinants of Health Financial Resource Strain: Low Risk Difficulty of Paying Living Expenses: Not hard at all Food Insecurity: No Food Insecurity Worried About Running Out of Food in the Last Year: Never true Ran Out of Food in the Last Year: Never true Transportation Needs: No Transportation Needs Lack of Transportation (Medical): No Lack of Transportation (Non-Medical): No Physical Activity: Inactive Days of Exercise per Week: 0 days Minutes of Exercise per Session: 0 min Stress: No Stress Concern Present Feeling of Stress : Not at all Social Connections: Moderately Isolated Frequency of Communication with Friends and Family: More than three times a week Frequency of Social Gatherings with Friends and Family: Once a week Attends Rastafari Services: Never Active Member of Clubs or Organizations: No Attends Club or Organization Meetings: Never Marital Status: Intimate Partner Violence: Not on file Housing Stability: Unknown Unable to Pay for Housing in the Last Year: No Number of Places Lived in the Last Year: Not on file Unstable Housing in the Last Year: No MEDICATIONS: Current Outpatient Medications Medication Sig Dispense Refill aspirin 81 MG EC tablet Take 81 mg by mouth in the morning. atorvastatin (Lipitor) 40 MG tablet Take 1 tablet (40 mg) by mouth in the morning. 90 tablet 3 cyanocobalamin (Vitamin B-12) 1000 MCG tablet Take 1 tablet by mouth in the morning. D-5000 125 MCG (5000 UT) tablet TAKE 1 TABLET BY MOUTH DAILY 30 tablet 11 glucose blood (FREESTYLE LITE) test strip 1 strip by Other route in the morning. Janumet XR 50-1000 MG per 24 hr tablet 2 times daily. metoprolol tartrate (Lopressor) 50 MG tablet TAKE 1 (ONE) and a half TABLET BY MOUTH TWICE DAILY 90 tablet 3 omeprazole (PriLOSEC) [address] capsule TAKE 1 CAPSULE BY MOUTH ONCE DAILY before a meal. 30 capsule 3 ProAir HFA 108 (90 Base) MCG/ACT inhaler every 4 hours as needed. clobetasol (Temovate) 0.05 % cream Apply topically 1 (one) time per week. 30 g 5 No current facility-administered medications for this visit. ALLERGIES: Allergies as of 10/12/2022 (No Known Allergies) REVIEW OF SYSTEMS: CONSTIUTIONAL: No unexpected weight change or fatigue CV: No Chest Pain with Exertion, Palpitations, Syncope RESPIRATORY: No SOB or Cough BREAST: No breast abnormalities or lumps GI: No Bloody Stools or melena : No Dysuria or Hematuria. +UI, wears a pad, . No Vaginal Discharge. No vaginal bleeding. No dyspareunia. NEURO: No CVA, Migraines,Seizure Hx, or Limb Weakness DERM: No Rash, Itching, Mole Changes or Cancer PSYCH: No Depression, suicidal thoughts, or anxiety MUSCULOSKELETAL: Had shoulder surgery in July HEME and LYMPH :No Lymphoma, Von Willebrand's, Hemophillia or Bleeding History PHYSICAL EXAM: Vitals: 10/12/22 1117 BP: 130/76 Temp: 36.6 C (97.8 F) TempSrc: Temporal Weight: 160 lb (72.6 kg) Body mass index is 26.63 kg/m . 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 EXTERNAL GENITALIA: normal female structures VAGINA: atrophy, no lesions CERVIX: no lesions, no cervical motion tenderness, normal appearance. UTERUS: normal mobility, nontender, normal size, shape and consistency. ADNEXA: normal, non tender no masses. URETHRA: normal. nontender BLADDER: non tender. PELVIC SUPPORT DEFECTS: Normal support of vagina, uterus, and bladder ANUS/PERINEUM: no hemorrhoids, masses or warts noted. GENERAL EXAM CONSTITUTIONAL: Well developed, well nourished, well groomed. no acute distress NECK: no thyromegaly, supple. CARDIOVASCULAR: normal rate, no edema LUNGS: Normal effort, ABDOMEN:soft, non-tender, non-distended, no hepatospleenomegaly NEUROLOGICAL: no gross motor or sensory deficits noted. . LYMPH NODES: no lymphadenapathy axillary or inguinal. SKIN: intact, dry MUSCULOSKELETAL: normal gait, no cyanosis. PSYCHIATRIC Normal mood and affect, A&O x3. ASSESSMENT/PLAN: Tesha was seen today for annual exam. Diagnoses and all orders for this visit: Well woman exam with routine gynecological exam (Primary) - Pap Smear Lichen sclerosus of female genitalia - clobetasol (Temovate) 0.05 % cream; Apply topically 1 (one) time per week. Follow up in about 1 year (around 10/13/2023) for Annual. Routine health maintenance per patients PCP. documented in this encounter [facility] 10-07-2022 History of Present illness Narrative Images from the original note were not included. [facility] AT [facility] [address] [facility] [address] Dept: [phone] Dept PHYSICAL THERAPY TREATMENT Patient Name: Tesha Brown : 1960 Date of Service: 10/07/2022 Referring Provider: Azeb Zamudio PA* Diagnosis: Calcific tendinitis of left shoulder Reason for referral/Mechanism of Injury: left shoulder surgery on 07/22/2022. (week 10) Patient Preferences: Fidelia Precautions/Red Flags: Other Other: Per post-op procotol for small to medium RTC repair, surgery on 07/22/2022, sling for 6 weeks. (10 weeks) Subjective Pt reports the shoulder is feeling better today with minimal to no soreness at the muscle of the shoulder or at the lump at the anterior shoulder. Pt reports she has been able to push in on the anterior shoulder without pain. Compliance with HEP: Yes Objective Objective measurements not taken today. Treatment Therapeutic Exercise Therapeutic Exercise Activity 5: shoulder abduction, 2x10 Activity 5 Comment: AROM side lying with 1# Therapeutic Exercise Activity 6: PROM x10 minutes Therapeutic Exercise Activity 7: shoulder flexion, 2x10 Activity 7 Comment: supine AROM, 1 set with 1# Therapeutic Exercise Activity 8: side lying ER, 2x10 Activity 8 Comment: 1# Therapeutic Exercise Activity 9: wall slides, 10x Therapeutic Exercise Activity 15: UBE, 2'/2, lvl 0 Therapeutic Exercise Activity 17: Standing shoulder flexion, 5x Activity 17 Comment: with scapular retraction Assessment Skilled physical therapy interventions utilized to improve patient s impairments and work towards established goals. Patient response to treatment: Completed warm up on UBE today without resistance. The pt reports good tolerance with UBE today but moving in reverse was more challenging. The pt was able to complete supine and side lying shoulder movements through full range with 1# resistance. Wall slides and active motion were very difficult as the pt was very fatigued and only able to complete a few repetitions. Patient will benefit from continued physical therapy to progress shoulder strengthening to complete active motion for ADLs. The rationale for today s treatment was explained to the patient. Verbal cues were provided for correct form with all exercises. Advised patient to continue with Home Exercise Program (HEP). Goals General/Ortho Patient will be independent with HEP. (Progressing) Start: 08/31/22 Expected End: 10/24/22 Patient will report decreased pain at the left shoulder to 0/10 with AROM for improved tolerance to movement. (Progressing) Start: 08/31/22 Expected End: 10/24/22 Patient will increase ROMof the left shoulder to range equal to the right for improved overhead motion. (Progressing) Start: 08/31/22 Expected End: 10/24/22 Goal note from Follow-Up 08/31/2022 by Dameon Rodriguez PT Began supine active motion. Patient will increase strength at the left UE to 4+/5 grossly for improved ability to complete AROM and light lifting. (Progressing) Start: 08/31/22 Expected End: 10/24/22 Plan Plan for next session: Continue with current plan. Time Entry Total Treatment Time Start Time: 0200 Stop Time: 4 Time Calculation (min): 34 min PT Therapeutic Procedures Time Entry Therapeutic Exercise Time Entry: 34 Dameon Rodriguez PT documented in this encounter [facility] 10-05-2022 History of Present illness Narrative Images from the original note were not included. [facility] AT [facility] [address] [facility] [address] Dept: [phone] Dept PHYSICAL THERAPY TREATMENT Patient Name: Tesha Brown : 1960 Date of Service: 10/05/2022 Referring Provider: Azeb Zamudio PA* Diagnosis: Calcific tendinitis of left shoulder Reason for referral/Mechanism of Injury: left shoulder surgery on 07/22/2022. (week 10) Patient Preferences: Fidelia Precautions/Red Flags: Other Other: Per post-op procotol for small to medium RTC repair, surgery on 07/22/2022, sling for 6 weeks. (10 weeks) Subjective Pt reports pain level of 3/10 coming into therapy today. The pt reports that she was painful yesterday without specific cause. The pt reports that she was sore all day upon waking up which makes her feel like it may have started with laying on the left side while sleeping. Pt reports knot in the anterior shoulder area, seems to be moving further medial on the arm. Compliance with HEP: Yes Objective Objective measurements not taken today. Treatment Therapeutic Exercise Therapeutic Exercise Activity 5: shoulder abduction, 10x ea Activity 5 Comment: AROM side lying with 1# Therapeutic Exercise Activity 6: PROM x10 minutes Therapeutic Exercise Activity 7: shoulder flexion, 15x Activity 7 Comment: supineAROM Therapeutic Exercise Activity 8: side lying ER, 15x Therapeutic Exercise Activity 9: wall slides, 10x Activity 9 Comment: standing Therapeutic Exercise Activity 15: Pulleys, 5' flexion Therapeutic Exercise Activity 16: wall crawl, x3 Assessment Skilled physical therapy interventions utilized to improve patient s impairments and work towards established goals. Patient response to treatment: Strengthening was limited today to avoid increased pain as the pt reports having much more soreness yesterday without specific cause. Following PROM and stretching the pt was able to tolerate AROM in supine position but additional resistance was held today. The pt reports no increase in pain to end session. The pt will be mindful of pain level with return to exercises at home, avoiding working through pain. Patient will benefit from continued physical therapy to address shoulder ROM and strength deficits. The rationale for today s treatment was explained to the patient. Verbal cues were provided for correct form with all exercises. Advised patient to continue with Home Exercise Program (HEP). Goals General/Ortho Patient will be independent with HEP. (Progressing) Start: 08/31/22 Expected End: 10/24/22 Patient will report decreased pain at the left shoulder to 0/10 with AROM for improved tolerance to movement. (Progressing) Start: 08/31/22 Expected End: 10/24/22 Patient will increase ROMof the left shoulder to range equal to the right for improved overhead motion. (Progressing) Start: 08/31/22 Expected End: 10/24/22 Goal note from Follow-Up 08/31/2022 by Dameon Rodriguez, PT Began supine active motion. Patient will increase strength at the left UE to 4+/5 grossly for improved ability to complete AROM and light lifting. (Progressing) Start: 08/31/22 Expected End: 10/24/22 Plan Plan for next session: Return to strengthening if pt's pain is better controlled at next session. Time Entry Total Treatment Time Start Time: 0205 Stop Time: 0240 Time Calculation (min): 35 min PT Therapeutic Procedures Time Entry Therapeutic Exercise Time Entry: 34 Dameon Rodriguez PT documented in this encounter [facility] 09-28-2022 History of Present illness Narrative Images from the original note were not included. [facility] AT [facility] [address] [facility] [address] Dept: [phone] Dept PHYSICAL THERAPY TREATMENT Patient Name: Tesha Brown : 1960 Date of Service: 09/28/2022 Referring Provider: Azeb Zamudio PA* Diagnosis: Calcific tendinitis of left shoulder Reason for referral/Mechanism of Injury: left shoulder surgery on 07/22/2022. (week 9) Patient Preferences: Fidelia Church Pt followed up with Dr. Gauthier today. She received an x-ray which showed no change. Dr. Gatuhier is not recommending surgery at this time. She reports 3/10 shoulder pain to start therapy today. Compliance with HEP: Yes Objective Objective measurements not taken today. Treatment Therapeutic Exercise Therapeutic Exercise Activity 5: shoulder abduction, 10x Activity 5 Comment: AROM standing and side lying Therapeutic Exercise Activity 6: PROM x10 minutes Therapeutic Exercise Activity 7: shoulder flexion, 15x Activity 7 Comment: supine and seated AROM Therapeutic Exercise Activity 8: side lying ER, 15x Therapeutic Exercise Activity 9: wall slides, 10x Activity 9 Comment: standing Therapeutic Exercise Activity 12: Wand flexion, 10x Activity 12 Comment: standing Therapeutic Exercise Activity 13: wand scaption, 10x Activity 13 Comment: standing Therapeutic Exercise Activity 14: wand ER, 10x Activity 14 Comment: standing Therapeutic Exercise Activity 15: Pulleys, 3' flexion Assessment Skilled physical therapy interventions utilized to improve patient s impairments and work towards established goals. Patient response to treatment: Continued with PROM of L shoulder to normalize motion. Progressed from AAROM to AROM in standing today. Pt with good tolerance to treatment today without complaints of pain throughout the session. Pt with limited AROM and compensatory shoulder shrug requiring cueing to prevent shrug. Patient will benefit from continued physical therapy to promote a return to unrestricted ADL's and work performance. The rationale for today s treatment was explained to the patient. Verbal cues were provided for correct form with all exercises. Advised patient to continue with Home Exercise Program (HEP). Goals General/Ortho Patient will be independent with HEP. (Progressing) Start: 08/31/22 Expected End: 10/24/22 Patient will report decreased pain at the left shoulder to 0/10 with AROM for improved tolerance to movement. (Progressing) Start: 08/31/22 Expected End: 10/24/22 Patient will increase ROMof the left shoulder to range equal to the right for improved overhead motion. (Progressing) Start: 08/31/22 Expected End: 10/24/22 Goal note from Follow-Up 08/31/2022 by Dameon Rodriguez, PT Began supine active motion. Patient will increase strength at the left UE to 4+/5 grossly for improved ability to complete AROM and light lifting. (Progressing) Start: 08/31/22 Expected End: 10/24/22 Plan Plan for next session: Progress AAROM, AROM Time Entry Total Treatment Time Start Time: 1345 Stop Time: 1415 Time Calculation (min): 30 min Fabrice Villareal PT documented in this encounter [facility] 07-23-2022 Note Patient was seen tod ay via Telehealth by agreement and consent in light of the current COVID-19 pandemic. I used the following Telehealth technology: Audio capability only. Total length of call 9 minutes. The patient was offered and advised video for a more comprehensive evaluation, but the patient declined or was unable to use video. Patient location: Home. This patient encounter is appropriate and reasonable under the circumstances given the patient's particular presentation at this time. The patient has been advised of the potential risks and limitations of this mode of treatment (including but not limited to the absence of in-person examination) and has agreed to be treated in a remote fashion in spite of them. Any and all of the patient's/patient's family's questions on this issue have been answered and I have made no promises or guarantees to the patient. The patient has also been advised to contact this office for worsening conditions or problems, and seek emergency medical treatment and/or call 911 if the patient deems either necessary. The patient stated that they are currently in the [facility]. If the patient is a minor, permission has been obtained by the parent or guardian for the patient to receive medical care at this visit. Pt doing well, but in pain. Block worn off. Hurting -- started on Percocet this afternoon once it started cramping, no Percocet taken last night. Advised OK with naproxen too for her surgery/findings, reviewed surg performed/findings, including CHEMA initially. Cramping in her muscles bothersome, asking if can remove sling for 10-15 min at a time. Yes, OK if awake and alert or wants to stretch the arm/elbow. Asked about ROM -- OK to do biceps pump herself/actively and pendulums. Keep the PT 07/29/22 at [place]. She is icing with ice machine. Knows she is OK to shower tomorrow. Confirmed PT and FU and PT appts. No other ?'s. AZEB ZAMUDIO PA-C [facility] 07-22-2022 Note Patient: Tesha sneed Procedure Summary Date: 07/22/22 Room / Location: [address] Operating Room Anesthesia Start: 940 Anesthesia Stop: 112 Procedures: Left Shoulder Diagnostic arthroscopy, Rotator cuff repair, VERSUS Rotator cuff debridement(Extensive), Subacromial decompression, possible arthroscopic biceps tenodesis, and Manipulation under Anesthesia (Left: Shoulder) ARTHROSCOPY SHOULDER DEBRIDEMENT EXTENSIVE (Left: Shoulder) ARTHROSCOPY SHOULDER DECOMPRESSION ACROMIOPLASTY (Left: Shoulder) ARTHROSCOPY SHOULDER BICEPS TENODESIS (Left: Shoulder) MANIPULATIONOF SHOULDER JOINT UNDER ANESTHESIA WITH APPLICATIN FIXATION APPARATUS (Left: Shoulder) Diagnosis: Calcific tendinitis of left shoulder Adhesive capsulitis of left shoulder Bicipital tendinitis, left shoulder (Calcific tendinitis of left shoulder [M75.32]) (Adhesive capsulitis of left shoulder [M75.02]) (Bicipital tendinitis, left shoulder [M75.22]) Surgeons: Raheem Gauthier MD Responsible Provider: Az Raymond Jr., MD Anesthesia Type: general anesthesia, regional ASA Status: 2 Anesthesia Type: general anesthesia, regional Vitals Value Taken Time BP 131/82 07/22/22 1122 Temp 97 07/22/22 1126 Pulse 86 07/22/22 1126 Resp 14 07/22/22 1126 SpO2 93% 07/22/22 1126 Vitals shown include unvalidated device data. Anesthesia Post Evaluation Patient location during evaluation: PACU Patient participation: complete - patient participated Level of consciousness: awake and alert Pain management: satisfactory to patient Airway patency: patent Dental Injury: no Cardiovascular status: acceptable, blood pressure returned to baseline and hemodynamically stable Respiratory status: acceptable and spontaneous ventilation Hydration status: euvolemic Nausea/Vomiting: controlled No notable events documented. Patient can be discharged once all PACU criteria has been met. [facility] 07-22-2022 Note Patient: Tesha sneed Procedure Summary Date: 07/22/22 Room / Location: [address] Operating Room Anesthesia Start: 940 Anesthesia Stop: 112 Procedures: Left Shoulder Diagnostic arthroscopy, Rotator cuff repair, VERSUS Rotator cuff debridement(Extensive), Subacromial decompression, possible arthroscopic biceps tenodesis, and Manipulation under Anesthesia (Left: Shoulder) ARTHROSCOPY SHOULDER DEBRIDEMENT EXTENSIVE (Left: Shoulder) ARTHROSCOPY SHOULDER DECOMPRESSION ACROMIOPLASTY (Left: Shoulder) ARTHROSCOPY SHOULDER BICEPS TENODESIS (Left: Shoulder) MANIPULATIONOF SHOULDER JOINT UNDER ANESTHESIA WITH APPLICATIN FIXATION APPARATUS (Left: Shoulder) Diagnosis: Calcific tendinitis of left shoulder Adhesive capsulitis of left shoulder Bicipital tendinitis, left shoulder (Calcific tendinitis of left shoulder [M75.32]) (Adhesive capsulitis of left shoulder [M75.02]) (Bicipital tendinitis, left shoulder [M75.22]) Surgeons: Raheem Gauthier MD Responsible Provider: Az Raymond Jr., MD Anesthesia Type: general anesthesia, regional ASA Status: 2 Anesthesia Type: general anesthesia, regional Vitals Value Taken Time BP 131/82 07/22/22 1122 Temp 98 07/22/22 1126 Pulse 87 07/22/22 1125 Resp 17 07/22/22 1125 SpO2 98 % 07/22/22 1125 Vitals shown include unvalidated device data. Anesthesia Post Evaluation Patient location during evaluation: PACU Patient participation: complete - patient participated Level of consciousness: awake and alert Pain score: 0 Pain management: satisfactory to patient Multimodal analgesia pain management approach Airway patency: patent Two or more strategies used to mitigate risk of obstructive sleep apnea Cardiovascular status: acceptable and hemodynamically stable Respiratory status: acceptable Hydration status: acceptable No notable events documented. MIPS #430 PONV Patient received an inhalational anesthetic (4554F) Patient exhibits three or more risk factors for PONV (4556F) Patient received at leaset 2 prophylactic Rx PONV anti-emtic agents of different classes preop and/or intraop (G9775) MIPS # 424 Perioperative Temperature Management Anesthesia time was 60 minutes or longer (4255F) Anesthesai administered was General (inhalational or TIVA) or Neuraxial block At least one body temperature greater than 95.8F/35.5C achieved within the 30 mins immediately prior to or the 15 minutes immediately following anesthesia end time MIPS #477 Multimodal Pain Management Not emergent case Patientw was administered multimodal pain management (two or more drugs and/or interventions excluding systemic opioids) in the periopeartive period occurring at some time between 6 hours prior to anesthesia start time until discharged from PACU (G2148) MIPS #404 Anesthesiology Smoking Abstinence MIPS 404The patient underwent an elective surgery or procedure requiring anesthesia (G9643)The patient received preop smoking cessation instructions prior to the day of surgery or procedure by MD, APC civil rights investigator proxy staff (G9497)The patient did not smoke the day of the procedure (G9644)The patient smoked the day of the procedure I completed my handoff to the receiving clinician during which we: 1. Identified the patient 2. Identified the responsible provider 3. Reviewed the pertinent medical history 4. Discussed the surgical course 5. Reviewed intra-op anesthesia management and issues during anesthesia 6. Set expectations for post-procedure period 7. Allowed opportunity for questions and acknowledgement of understanding. [facility] 07-22-2022 Note Airway Date/Time: 07/22/2022 9:43 AM Urgency: scheduled Airway not difficult General Information and Staff Patient location during procedure: Procedural Anesthesiologist: Az Raymond Jr., MD Resident/DRESSING ROOM ATTENDANT: Malena Reynaga APRN - DRESSING ROOM ATTENDANT Performed: DRESSING ROOM ATTENDANT Indications and Patient Condition Indications for airway management: anesthesia Sedation level: Asleep Patient position: sniffing Mask difficulty assessment: 1 - vent by mask Final Airway Details Final airway type: endotracheal airway Successful airway: ETT Cuffed: yes Successful intubation technique: direct laryngoscopy Facilitating devices/methods: intubating stylet Endotracheal tube insertion site: oral Blade: Chato Blade size: #3 ETT size (mm): 7.0 Cormack-Lehane Classification: grade IIa - partial view of glottis Placement verified by: chest auscultation and capnometry Measured from: lips ETT to lips (cm): 21 Number of attempts at approach: 1 Number of other approaches attempted: 0 [facility] 07-22-2022 Note Peripheral Block Time Out: 07/22/2022 8:56 AM Patient location during procedure: Procedural Start time: 07/22/2022 8:57 AM End time: 07/22/2022 9:09 AM Reason for block: at surgeon's request and post-op pain management Staffing Performed: anesthesiologist Anesthesiologist: Az Raymond Jr., MD Preanesthetic Checklist Completed: patient identified, IV checked, site marked, risks and benefits discussed, surgical consent, monitors and equipment checked, pre-op evaluation and timeout performed Region: Upper Extremities Primary: Supraclavicular Peripheral Block Patient position: supine Prep: ChloraPrep Patient monitoring: continuous pulse ox, heart rate and radiographer cardiac catheterization O2: Nasal cannula Laterality: left Injection technique: single-shot Guidance: nerve stimulator and ultrasound guided -image retained in chart, tip of the needle identified by ultraound during injection. Local infiltration: lidocaine Infiltration strength: 1 % Dose: 3 mL Needle Needle: 22G X 50 mm Additional Notes Patient Position - Supine w/head elevated Nerve stimulating, Minimum current when twitches disappeared at 0.3mA Post Procedure - Patient tolerated procedure well. No complications noted 30 mL 0.375% Bupivacaine HCL with decadron sodium phosphate 0.01% & Epi 1:200,000 PF 07/22/2022 8:57 AM Assessment Injection assessment: negative aspiration for heme, no paresthesia on injection, incremental injection and local visualized surrounding nerve on ultrasound Paresthesia pain: none Heart rate change: no Slow fractionated injection: yes Required Documentation: Relevant anatomy identified (Nerves, Vessels, Muscles), Negative for blood on aspiration, Local anesthetic injected incrementally with intermittent aspiration every 5 mL, Normal resistance with injection, Local anesthetic spread visualized around nerves or plane., No EKG changes noted, No symptoms of toxicity and No paresthesias reported by patient during injection [facility] 07-22-2022 Note H&P reviewed. The pa tient was examined and there are no changes to the H&P. [facility] 07-16-2022 Note IMPRESSION: SINUS RHYTHM PROBABLE LEFT ATRIAL ABNORMALITY LEFT AXIS DEVIATION poor r wave progression. BORDERLINE T ABNORMALITIES, ANTERIOR LEADS No previous ECG available for comparison Electronically Signed On 07-16-2022 8:42:07 EST by Darwin Horowitz [facility] 07-15-2022 Note Patient: Tesha sneed Procedure Information Date/Time: 07/22/2230 Procedures: Left Shoulder Diagnostic arthroscopy, Rotator cuff repair, VERSUS Rotator cuff debridement(Extensive), Subacromial decompression, possible arthroscopic biceps tenodesis, and Manipulation under Anesthesia (Left: Shoulder) - 150 mins ARTHROSCOPY SHOULDER DEBRIDEMENT EXTENSIVE (Left: Shoulder) ARTHROSCOPY SHOULDER DECOMPRESSION ACROMIOPLASTY (Left: Shoulder) ARTHROSCOPY SHOULDER BICEPS TENODESIS (Left: Shoulder) MANIPULATIONOF SHOULDER JOINT UNDER ANESTHESIA WITH APPLICATIN FIXATION APPARATUS (Left: Shoulder) Location: [address] Operating Room Surgeons: Raheem Gauthier MD Relevant Problems Anesthesia (+) Delayed emergence from anesthesia Cardio (+) Essential hypertension (+) Mixed hyperlipidemia Endo (+) Type 2 diabetes mellitus without complication, without long-term current use of insulin ([facility] ([facility]) GI (+) Gastroesophageal reflux disease without esophagitis Neuro/Psych (+) Depression (+) KIRSTEN (generalized anxiety disorder) Pulmonary (+) Mild intermittent asthma without complication Other (+) Adhesive capsulitis of left shoulder Past Medical History: Past Medical History: 09/11/2019: Controlled type 2 diabetes mellitus without complication, without long-term current use of insulin ([facility] ([facility]) No date: Delayed emergence from general anesthesia 09/11/2019: Essential hypertension 09/11/2019: KIRSTEN (generalized anxiety disorder) 09/11/2019: Gastroesophageal reflux disease without esophagitis 09/11/2019: Mild intermittent asthma without complication 09/11/2019: Mixed hyperlipidemia 09/11/2019: Vitamin D deficiency Past Surgical History: Past Surgical History: No date: TUBAL LIGATION Social History: TOBACCO: reports that she has been smoking cigarettes. She has been smoking an average of 1 pack per day. She has never used smokeless tobacco. ETOH: reports that she does not currently use alcohol. Social History Substance and Sexual Activity Drug Use Never Family History: Problem Relation ? No Known Problems Sister ? No Known Problems Sister ? No Known Problems Sister ? No Known Problems Sister ? Breast cancer Maternal Grandmother ? Other ([id number]) Father ? Stroke Mother ? No Known Problems Brother ? No Known Problems Sister Screening: Postmenopausal Clinical information reviewed: Tobacco Allergies Meds Med Hx Surg Hx OB Status Fam Hx Soc Hx Physical Exam Airway Mallampati: II TM distance: >3 FB Neck ROM: limited Mouth Open: normalendotracheal tube not in place Cardiovascular Dental (+) Upper Dentures Comments: Missing teeth top Nothing loose or broken Top dentures + crowns Pulmonary Abdominal Other findings: Edentulous upper (denture out) Denies loose teeth (lower) GERD controlled PONV: Intermediate Risk Total Score: 2 Female patient Intended opioid administration Anesthesia Plan ASA 2 general anesthesia and regional ( Supraclavicular Discussed regional anesthesia for post operative pain reduction, all benefits and risks/complications. All questions were answered. Patient consents and to a regional anesthesia for post operative pain control. ) The patient is a current smoker. Patient was previously instructed to abstain from smoking on day of procedure. Patient did not smoke on day of procedure. Anesthetic plan and risks discussed with patient. patient is NPO ERAS Meds Tylenol Pepcid She is supposed to wear Oxygen at night as she sleeps - she does not ADOLPH Screening STOP-Bang Total Score: 3 Labs: Lab Results Component Value Date WBC 3.2 (L) 07/15/2022 HGB 14.1 07/15/2022 HCT 41.4 07/15/2022 MCV 91.9 07/15/2022 PLT 159 07/15/2022 Lab Results Component Value Date NA 132 (L) 07/15/2022 K 5.9 (H) 07/15/2022 CL 105 07/15/2022 CO2 23 07/15/2022 BUN 20 (H) 07/15/2022 CREATININE 1.21 (H) 07/15/2022 GLUCOSE 122 (H) 07/15/2022 CALCIUM 8.6 07/15/2022 PROT 6.6 11/19/2021 ALKPHOS 41 11/19/2021 AST 22 11/19/2021 EGFR 50.5 (L) 07/15/2022 No components found for: LVEF, LVEFMODE No echocardiogram results found for the past 14 days 07/15/22 ECG 12-LEAD Impression SINUS RHYTHM PROBABLE LEFT ATRIAL ABNORMALITY LEFT AXIS DEVIATION poor r wave progression. BORDERLINE T ABNORMALITIES, ANTERIOR LEADS No previous ECG available for comparison Electronically Signed On 07-16-2022 8:42:07 EST by [facility] 07-15-2022 Note Comprehensive PreSur gical History and Physical ? Name: Tesha Brown : 1960 (Age-62 y.o.) Date of Service: Pt seen/examined on 07/15/2022 Procedure Information Date/Time: 07/22/2230 Procedures: Left Shoulder Diagnostic arthroscopy, Rotator cuff repair, VERSUS Rotator cuff debridement(Extensive), Subacromial decompression, possible arthroscopic biceps tenodesis, and Manipulation under Anesthesia (Left: Shoulder) - 150 mins ARTHROSCOPY SHOULDER DEBRIDEMENT EXTENSIVE (Left: Shoulder) ARTHROSCOPY SHOULDER DECOMPRESSION ACROMIOPLASTY (Left: Shoulder) ARTHROSCOPY SHOULDER BICEPS TENODESIS (Left: Shoulder) MANIPULATIONOF SHOULDER JOINT UNDER ANESTHESIA WITH APPLICATIN FIXATION APPARATUS (Left: Shoulder) Location: [address] Operating Room Surgeons: Raheem Gauthier MD Chief Complaint: Shoulder pain History Of Present Illness: 62 y.o. female who c/o left sided shoulder pain. She describes her symptoms worse with reaching, dressing self, work at or above shoulder height, difficulty sleeping on affected side, and alleviated with Naproxen. She had USG barbotage with Dr. Castro on 04/14/2022, and formal PT at [facility]. Dr. Castro was able to aspirate some of the calcification during his procedure and did Inject cortisone at the end of the procedure as well. She has noticed symptom persistence over the last several weeks. Pt has seen the surgeon and elected for above procedure. BS at home 120-130s Denies Hx of CAD, CHF, LA, TIA/CVA, DVT/PE, ADOLPH Dental? - Missing teeth top Nothing loose or broken Top dentures + crowns Hx problems with anesthesia? - delayed emergence Snore at night? -yes >4 METS? -yes Walk indoors, such as around the house (1.75 METs), Do light work around the house, such as dusting or washing dishes (2.70 METs), Take care of self, that is eating, dressing, bathing, using the toilet (2.75 METs), Do moderate work around the house such as vacuuming, sweeping floors, or carrying in groceries (3.50 METs), Climb a flight of stairs or walk up a hill (5.50 METs) Past Medical History: Past Medical History: 09/11/2019: Controlled type 2 diabetes mellitus without complication, without long-term current use of insulin ([facility] ([facility]) No date: Delayed emergence from general anesthesia 09/11/2019: Essential hypertension 09/11/2019: KIRSTEN (generalized anxiety disorder) 09/11/2019: Gastroesophageal reflux disease without esophagitis 09/11/2019: Mild intermittent asthma without complication 09/11/2019: Mixed hyperlipidemia 09/11/2019: Vitamin D deficiency Past Surgical History: Past Surgical History: No date: TUBAL LIGATION Medications Prior to Admission: Current Outpatient Medications: aspirin 81 MG EC tablet, Take 81 mg by mouth in the morning., Disp: , Rfl: atorvastatin (Lipitor) 40 MG tablet, Take 1 tablet (40 mg) by mouth in the morning., Disp: 90 tablet, Rfl: 3 cyanocobalamin (Vitamin B-12) 1000 MCG tablet, Take 1 tablet by mouth in the morning., Disp: , Rfl: D-5000 125 MCG (5000 UT) tablet, Take 5,000 Units by mouth in the morning., Disp: , Rfl: glucose blood (FREESTYLE LITE) test strip, 1 strip by Other route in the morning., Disp: , Rfl: Janumet XR 50-1000 MG per 24 hr tablet, 2 times daily., Disp: , Rfl: lisinopril-hydroCHLOROthiazide 20-12.5 MG tablet, every morning (before breakfast)., Disp: , Rfl: metoprolol tartrate (Lopressor) 50 MG tablet, TAKE 1 (ONE) and a half TABLET BY MOUTH TWICE DAILY, Disp: , Rfl: naproxen (Naprosyn) 500 MG tablet, Take 500 mg by mouth in the morning and 500 mg in the evening. Take with meals., Disp: , Rfl: omeprazole (PriLOSEC) [address] capsule, every morning (before breakfast)., Disp: , Rfl: ProAir HFA 108 (90 Base) MCG/ACT inhaler, every 4 hours as needed., Disp: , Rfl: CHRONIC NARCOTIC USE: No Allergies: Patient has no known allergies. If patient has opioid allergy, is it okay to take Acetaminophen: N/A Social History: TOBACCO: reports that she has been smoking cigarettes. She has been smoking an average of 1 pack per day. She has never used smokeless tobacco. ETOH: reports that she does not currently use alcohol. Social History Substance and Sexual Activity Drug Use Never Family History: Family History Problem Relation Name Age of Onset No Known Problems Sister No Known Problems Sister No Known Problems Sister No Known Problems Sister Breast cancer Maternal Grandmother Other ([id number]) Father Acute leukemia Stroke Mother No Known Problems Brother No Known Problems Sister REVIEW OF SYSTEMS: Review of Systems Constitutional: Negative for chills and fever. Respiratory: Negative for shortness of breath. Cardiovascular: Negative for chest pain. Pertinent positives as noted in the HPI. Physical Exam: Physical Exam Constitutional: General: She is awake. She is not in acute distress. Appearance: Normal appearance. HENT: Head: Normoce (more content not included)... [facility] 07-15-2022 Note Comprehensive PreSur gical History and Physical ? Name: Tesha Brown : 1960 (Age-62 y.o.) Date of Service: Pt seen/examined on 07/15/2022 Procedure Information Date/Time: 07/22/22 1230 Procedures: Left Shoulder Diagnostic arthroscopy, Rotator cuff repair, VERSUS Rotator cuff debridement(Extensive), Subacromial decompression, possible arthroscopic biceps tenodesis, and Manipulation under Anesthesia (Left: Shoulder) - 150 mins ARTHROSCOPY SHOULDER DEBRIDEMENT EXTENSIVE (Left: Shoulder) ARTHROSCOPY SHOULDER DECOMPRESSION ACROMIOPLASTY (Left: Shoulder) ARTHROSCOPY SHOULDER BICEPS TENODESIS (Left: Shoulder) MANIPULATIONOF SHOULDER JOINT UNDER ANESTHESIA WITH APPLICATIN FIXATION APPARATUS (Left: Shoulder) Location: [address] Operating Room Surgeons: Raheem Gauthier MD Chief Complaint: Shoulder pain History Of Present Illness: 62 y.o. female who c/o left sided shoulder pain. She describes her symptoms worse with reaching, dressing self, work at or above shoulder height, difficulty sleeping on affected side, and alleviated with Naproxen. She had USG barbotage with Dr. Castro on 04/14/2022, and formal PT at [facility]. Dr. Castro was able to aspirate some of the calcification during his procedure and did Inject cortisone at the end of the procedure as well. She has noticed symptom persistence over the last several weeks. Pt has seen the surgeon and elected for above procedure. BS at home 120-130s Denies Hx of CAD, CHF, LA, TIA/CVA, DVT/PE, ADOLPH Dental? - Missing teeth top Nothing loose or broken Top dentures + crowns Hx problems with anesthesia? - delayed emergence Snore at night? -yes >4 METS? -yes Walk indoors, such as around the house (1.75 METs), Do light work around the house, such as dusting or washing dishes (2.70 METs), Take care of self, that is eating, dressing, bathing, using the toilet (2.75 METs), Do moderate work around the house such as vacuuming, sweeping floors, or carrying in groceries (3.50 METs), Climb a flight of stairs or walk up a hill (5.50 METs) Past Medical History: Past Medical History: 09/11/2019: Controlled type 2 diabetes mellitus without complication, without long-term current use of insulin ([facility]) ([facility]) No date: Delayed emergence from general anesthesia 09/11/2019: Essential hypertension 09/11/2019: KIRSTEN (generalized anxiety disorder) 09/11/2019: Gastroesophageal reflux disease without esophagitis 09/11/2019: Mild intermittent asthma without complication 09/11/2019: Mixed hyperlipidemia 09/11/2019: Vitamin D deficiency Past Surgical History: Past Surgical History: No date: TUBAL LIGATION Medications Prior to Admission: Current Outpatient Medications: aspirin 81 MG EC tablet, Take 81 mg by mouth in the morning., Disp: , Rfl: atorvastatin (Lipitor) 40 MG tablet, Take 1 tablet (40 mg) by mouth in the morning., Disp: 90 tablet, Rfl: 3 cyanocobalamin (Vitamin B-12) 1000 MCG tablet, Take 1 tablet by mouth in the morning., Disp: , Rfl: D-5000 125 MCG (5000 UT) tablet, Take 5,000 Units by mouth in the morning., Disp: , Rfl: glucose blood (FREESTYLE LITE) test strip, 1 strip by Other route in the morning., Disp: , Rfl: Janumet XR 50-1000 MG per 24 hr tablet, 2 times daily., Disp: , Rfl: lisinopril-hydroCHLOROthiazide 20-12.5 MG tablet, every morning (before breakfast)., Disp: , Rfl: metoprolol tartrate (Lopressor) 50 MG tablet, TAKE 1 (ONE) and a half TABLET BY MOUTH TWICE DAILY, Disp: , Rfl: naproxen (Naprosyn) 500 MG tablet, Take 500 mg by mouth in the morning and 500 mg in the evening. Take with meals., Disp: , Rfl: omeprazole (PriLOSEC) [address] capsule, every morning (before breakfast)., Disp: , Rfl: ProAir HFA 108 (90 Base) MCG/ACT inhaler, every 4 hours as needed., Disp: , Rfl: CHRONIC NARCOTIC USE: No Allergies: Patient has no known allergies. If patient has opioid allergy, is it okay to take Acetaminophen: N/A Social History: TOBACCO: reports that she has been smoking cigarettes. She has been smoking an average of 1 pack per day. She has never used smokeless tobacco. ETOH: reports that she does not currently use alcohol. Social History Substance and Sexual Activity Drug Use Never Family History: Family History Problem Relation Name Age of Onset No Known Problems Sister No Known Problems Sister No Known Problems Sister No Known Problems Sister Breast cancer Maternal Grandmother Other ([id number]) Father Acute leukemia Stroke Mother No Known Problems Brother No Known Problems Sister REVIEW OF SYSTEMS: Review of Systems Constitutional: Negative for chills and fever. Respiratory: Negative for shortness of breath. Cardiovascular: Negative for chest pain. Pertinent positives as noted in the HPI. Physical Exam: Physical Exam Constitutional: General: She is awake. She is not in acute distress. Appearance: Normal appearance. HENT: Head: Normoce (more content not included)... [facility] documented [facility] encounter [facility] Work Phone: Evaluation note* Diagnosis Calcific tendinitis of left shoulder- Primary Adhesive capsulitis of left shoulder Biceps tendinitis of left shoulder documented in this encounter [facility]* Diagnosis Calcific tendinitis of left shoulder- Primary Adhesive capsulitis of left shoulder Biceps tendinitis of left shoulder documented in this encounter [facility]* Diagnosis Calcific tendinitis of left shoulder- Primary Adhesive capsulitis of left shoulder Biceps tendinitis of left shoulder documented in this encounter [facility]* Diagnosis Well woman exam with routine gynecological exam- Primary Routine gynecological examination Lichen sclerosus of female genitalia documented in this encounter [facility]* Diagnosis Calcific tendinitis of left shoulder- Primary Adhesive capsulitis of left shoulder Biceps tendinitis of left shoulder documented in this encounter [facility]* Diagnosis Left shoulder pain, unspecified chronicity- Primary Left shoulder pain, unspecified chronicity documented in this encounter [facility]* Diagnosis Left shoulder pain, unspecified chronicity documented in this encounter [facility]* Diagnosis Encounter for screening mammogram for breast cancer documented in this encounter [facility]* Diagnosis Calcific tendinitis of left shoulder- Primary Adhesive capsulitis of left shoulder Biceps tendinitis of left shoulder documented in this encounter [facility]* Diagnosis Calcific tendinitis of left shoulder- Primary Adhesive capsulitis of left shoulder Biceps tendinitis of left shoulder documented in this encounter [facility]* Diagnosis Calcific tendinitis of left shoulder- Primary Adhesive capsulitis of left shoulder Biceps tendinitis of left shoulder documented in this encounter [facility]* Diagnosis Calcific tendinitis of left shoulder- Primary Adhesive capsulitis of left shoulder documented in this encounter [facility]* Diagnosis Calcific tendinitis of left shoulder- Primary Adhesive capsulitis of left shoulder Biceps tendinitis of left shoulder documented in this encounter [facility]* Diagnosis Type 2 diabetes mellitus without complication, without long-term current use of insulin (CMS/HCC) (HCC)- Primary Essential hypertension Unspecified essential hypertension Mixed hyperlipidemia documented in this encounter [facility]* Diagnosis Lichen sclerosus of female genitalia documented in this encounter [facility]* Diagnosis Mixed hyperlipidemia documented in this encounter [facility] Summary Purpose Family History No Family History Records FoundNo Family History Records FoundNo Family History Records FoundNo Family History Records Found Advance Directives Documents on File Type Date Recorded Patient Writer Expl anation Advance Directives and Living Will Power of Drosser Reason for Referral Status Reason Specialty Diagnoses / Procedures Re ferred By Contact Referred To Contact Authorized Radiology Diagnoses Localized swelling of right lower leg Venous (peripheral) insufficiency Procedures US Lower Extremity Venous Right US Lower Extremity Venous Right Risa Navarrete APRN - NP [address] [address] Assessments Diagnosis Localized swelling of right lower leg Venous (peripheral) insufficiency Unspecified venous (peripheral) insufficiency Additional Source Comments INFORMATION SOURCE (unrecogn ized section and content) DATE CREATED AUTHOR AUTHOR'S ORGANIZ ATION 05/13/2022 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 [place] [address] PCP - General Family Medicine 02/05/20 Squeegee Operator Relationship Specialty Start Date End Date Janes Leahy MD [facility] [place] [address] PCP - General 02/05/20 Squeegee Operator Relationship Specialty Start Date End Date Janes Leahy MD [facility] [place] [address] PCP - General 02/05/20 Squeegee Operator Relationship Specialty Start Date End Date Janes Leahy MD [facility] [place] [address] PCP - General 02/05/20 Squeegee Operator Relationship Specialty Start Date End Date Janes Leahy MD [address] [place] [address] [address] [place] [address] PCP - General 02/05/20 Squeegee Operator Relationship Specialty Start Date End Date Janes Leahy MD [facility] [place] [address] PCP - General 02/05/20 Squeegee Operator Relationship Specialty Start Date End Date Janes Leahy MD [facility] [place] [address] PCP - General 02/05/20 Squeegee Operator Relationship Specialty Start Date End Date Janes Leahy MD [facility] [place] [address] PCP - General 02/05/20 Squeegee Operator Relationship Specialty Start Date End Date Janes Leahy MD [facility] [place] [address] PCP - General 02/05/20 Squeegee Operator Relationship Specialty Start Date End Date Janes Leahy MD [address] [place] [address] PCP - General 02/05/20 Squeegee Operator Relationship Specialty Start Date End Date Janes Leahy MD [address] [place] [address] PCP - General 02/05/20 Squeegee Operator Relationship Specialty Start Date End Date Janes Leahy MD [address] [place] [address] PCP - General 02/05/20 Squeegee Operator Relationship Specialty Start Date End Date Janes Leahy MD [facility] [place] [address] PCP - General 02/05/20 Squeegee Operator Relationship Specialty Start Date End Date Janes Leahy MD [address] [place] [address] PCP - General 02/05/20 Squeegee Operator Relationship Specialty Start Date End Date Janes Leahy MD [address] [place] [address] PCP - General 02/05/20 Squeegee Operator Relationship Specialty Start Date End Date Janes Leahy MD [address] [place] [address] PCP - General 02/05/20 Reason for Visit (unrecogniz ed section and content) Specialty Diagnoses / Procedures Referred By Rik friend Referred To Contact Physical Therapy Diagnoses Calcific tendinitis of left shoulder Adhesive capsulitis of left shoulder Biceps tendinitis of left shoulder Procedures ND OFFICE/OUTPATIENT NEW HIGH MDM 60-74 MINUTES Azeb Zamudio PA-C [address] [place] [address] [facility] [address] [place] [address] Referral ID Status Reason Start Date Expiration Date Visits Requested Visits Authorized [id number] Authorized Eval and Treat 07/15/2022 01/11/2023 24 48 Reason Comments PT Re-evaluation Reason Comments Annual Exam La 10/06/21 Reason Comments Follow-up Left Shoulder CHEMA, s cope, excision calcific tendonitis, Rotator cuff repair x 1 anchor, SAD on 07/22/22 Reason Comments Med Refill Specialty Diagnoses / Procedures Referred By Rik friend Referred To Contact Physical Therapy Diagnoses Calcific tendinitis of left shoulder Adhesive capsulitis of left shoulder Biceps tendinitis of left shoulder Procedures ND OFFICE/OUTPATIENT [facility] 60-74 MINUTES Azeb Zamudio PA-C [address] [place] [address] [facility] [address] [place] [address] Reason Comments Follow-up Left Shoulder CHEMA, s cope, excision calcific tendonitis, Rotator cuff repair x 1 anchor, SAD on 07/22/22 Reason Comments Diabetes FOR RECORDS PERTAINING TO PATIENTS WHO ARE OR HAVE BEEN ENROLLED IN A CHEMICAL DEPENDENCY/SUBSTANCEABUSE PROGRAM, SOME INFORMATION MAY BE OMITTED. This clinical summary was aggregated from multiple sources. Caution should be exercised in using it in the provision of clinical care. This summary normalizes information from multiple sources, and as a consequence, information in this document may materially change the coding, format and clinical context of patient data. In addition, data may be omitted in some cases. CLINICAL DECISIONS SHOULD BE BASED ON THE PRIMARY CLINICAL RECORDS. [employer] [facility]. provides no warranty or guarantee of the accuracy or completeness of information in this document.
== END | disposition home or self-care (01) ==
PROVIDERS: PCP Student in an Organized Health Care Education/Training Program; Referring Provider Nurse Practitioner Acute Care; Visit Provider Nurse Practitioner Acute Care
DX: R06.02 Shortness of breath (principal); G47.34 Idiopathic sleep related nonobstructive alveolar hypoventilation
CPT/HCPCS: 93306; C8929

== ENCOUNTER → 2023-10-03 | Outpatient (CLI) | payer MEDICAID, SELFPAY ==
--- NOTE | 2023-10-03 13:43 | CT_ITS ---
STUDY: LOW DOSE CT LUNG CANCER SCREENING REASON FOR EXAM: Female, 63 years old. smoker. Current smoker. One pack per day for 50 years. RADIATION DOSAGE (If Supplied By Facility): CTDIvol = ( 2.01 ) mGy, DLP = ( 66.95 ) mGycm TECHNIQUE: No contrast was administered. Low dose technique was utilized (average mAS-38 and kVp 120). 1.25 mm axial source images with a slice interval of 1.25-mm were reconstructed in lung windows. 2.5 mm axial source images with a slice interval of 2.5-mm were reconstructed in lung windows. 5.0 mm axial source images with a slice interval of 5.0-mm were reconstructed in soft tissue windows. COMPARISON: Comparison is made with prior study dated September 29, 2022. NODULES: No suspicious nodules are seen. Emphysema: Emphysematous changes. The previously seen groundglass appearance scattered throughout both lungs has markedly improved. Minimal residual changes persist. Endobronchial lesion: None Aorta: Atherosclerotic plaque formation of the aortic arch. CORONARY ARTERIES: Coronary artery calcification is seen. Heart: Unremarkable Pulmonary artery: Unremarkable Mediastinal nodes: Unremarkable Other chest and abdominal findings: CT/Low Dose CT Lung Screening IMPRESSION: Lung-RADS category 2 - Continue annual screening with LDCT in 12 months. IMPORTANT NOTES FOR USE: ACR Lung-RADS Version 1.1 Assessment Categories Release Date: 2018 Category: Coded 0-4 bases on nodule(s) with highest degree of suspicion. Negative screen is defined as categories 1 and 2; a positive screen is defined as categories 3 and 4. Category 3 and 4A nodules that are unchanged on interval CT should be coded as category 2, and individuals returned to screening in 12 months. Category 4X: Category 3 or 4 nodules with additional imaging findings that increase the suspicion of lung cancer, such as spiculation, GGN that doubles in size in 1 year, enlarged lymph notes, etc. Category Modifiers: S (significant finding unrelated to lung cancer) Electronically Signed: Tucker Alvarado MD at 9:32 EDT ,
== END | disposition home or self-care (01) ==
LOC: CT 13:42
PROVIDERS: PCP Student in an Organized Health Care Education/Training Program; Referring Provider Nurse Practitioner Acute Care; Visit Provider Nurse Practitioner Acute Care
DX: Z12.2 Encounter for screening for malignant neoplasm of respiratory organs (principal); F17.210 Nicotine dependence, cigarettes, uncomplicated
CPT/HCPCS: 71271

== ENCOUNTER → 2024-10-03 | Outpatient (CLI) | payer MEDICAID, SELFPAY ==
--- NOTE | 2024-10-03 12:59 | CT_ITS ---
PROCEDURE: LOW DOSE CT LUNG SCREENING 10/03/2024 REASON FOR EXAM: SMOKER 1 pack a day smoker. TECHNIQUE: Low Dose CT Lung screening without contrast. Coronal and Sagittal reconstruction series were provided. One or more dose reduction techniques were used (e.g., Automated exposure control, adjustment of the mA and/or kV according to patient size, use of iterative reconstruction technique). REFERENCE LINK: [employer] Lung-RADS RADIATION DOSE SUMMARY: CTDlvol: 2.01 mGy DLP: 69.72 mGycm COMPARISON: Comparison is made with prior study dated October 03, 2023. FINDINGS: PULMONARY NODULES: (Only nodules >3mm are reported) Nodules described below are on series 1 unless otherwise specified. Pulmonary Nodules: None Hardware:None Lymph Nodes:Small benign-appearing lymph nodes. Heart and Vasculature:Coronary artery calcifications are noted.Atherosclerotic calcifications of the thoracic aorta. Thoracic aorta and pulmonary arteries have normal contours; noncontrast technique limits evaluation. Coronary Artery Calcifications: Present Lungs and Airways: Mild emphysematous changes are present. Pleura:Unremarkable Upper Abdomen:Unremarkable Bones:Degenerative changes of the thoracic spine. CT/Low Dose CT Lung Screening IMPRESSION: Stable examination. Lung-RADS Category: 2 BENIGN (BASED ON IMAGING FEATURES OR INDOLENT BEHAVIOR). RECOMMEND 12-MONTH SCREENING LDCT. Other Significant Findings: None. Reading Location: [place] [id number]
== END | disposition home or self-care (01) ==
LOC: CT 12:55
PROVIDERS: PCP Student in an Organized Health Care Education/Training Program; Referring Provider Nurse Practitioner Acute Care; Visit Provider Nurse Practitioner Acute Care
DX: F17.210 Nicotine dependence, cigarettes, uncomplicated (principal)
CPT/HCPCS: 71271

== ENCOUNTER → 2024-10-31 | Outpatient (CLI) | payer MEDICAID, SELFPAY ==
[2024-10-31 13:48] LABS: Rheumatoid Factor < 10.0 IU/mL (<15)
[2024-11-02 14:08] LABS: CCP IgG Antibodies 7 units (0-19); Cytoplasmic Ab (C-ANCA) <1:20 titer (Neg:<1:20); Perinuclear Ab (P-ANCA) <1:20 titer (Neg:<1:20)
[2024-11-06 14:08] LABS: Anti-Centromere B Ab <0.2 AI (0.0-0.9); Anti-Chromatin <0.2 AI (0.0-0.9); Anti-Jo <0.2 AI (0.0-0.9); Anti-Scleroderma-70 AB <0.2 AI (0.0-0.9); Anti-dsDNA Ab 1 IU/mL (0-9); Anti-ribosomal P Antibodies <0.2 AI (0.0-0.9); RNP Ab <0.2 AI (0.0-0.9); SJOGREN'S Anti-SS-A test < 0.2 AI (0.0-0.9); SJOGREN'S Anti-SS-B test < 0.2 AI (0.0-0.9); Smith Ab <0.2 AI (0.0-0.9); Smith/RNP Ab <0.2 AI (0.0-0.9)
== END | disposition home or self-care (01) ==
PROVIDERS: PCP Student in an Organized Health Care Education/Training Program; Referring Provider Nurse Practitioner Acute Care; Visit Provider Nurse Practitioner Acute Care
DX: R06.00 Dyspnea, unspecified (principal)
CPT/HCPCS: 86225; 86235 ×5; 36415; 86037; 86200; 86431